=== PATIENT | female | born 1925 | race Caucasian/White ===

== ENCOUNTER 2016-10-17 08:58 | Inpatient (IN) | payer OTHER, MEDICARE ==
[~2016-10-17] VITALS: Ht 157.5 cm; Wt 47.0 kg
[2016-10-17] VITALS (8 sets, daily range): BP systolic 114–154; BP diastolic 54–76; PULSE 69–87; RESP 15–19; TEMP 96.3–98.6; O2SAT 96–100
[~2016-10-17 08:58] MED LIST: AUGM875T PO; CALC600T34 PO; CENTCHW3 PO; LEVO88TA21 PO; MAGN250T3 PO; MELO15TA2 PO; MEMA10 PO; METH2.5 PO; PRESCAP6 PO; PROP60TA2 PO; TIMO0.5S6 OD; TRAV0.00 EACH EYE; VITA400C70 PO; VITA500T10 PO
[2016-10-17] MEDS ORDERED: PROP60TA PO (09:26)
[2016-10-17] MEDS ORDERED: LEVO75TA3 PO (09:26)
[2016-10-17] MEDS ORDERED: MELO7.5T4 PO (09:26)
[2016-10-17] MEDS ORDERED: METH2.5T PO (09:26)
[2016-10-17] MEDS ORDERED: SODIUM CHLORIDE 0.9% FLUSH 5 ML FLUSH IV FLUSH PRN (10:00)
[2016-10-17] MEDS ORDERED: MORPHINE SULFATE 4 MG/ML INJ IV PUSH ONE (10:00)
[2016-10-17 10:46] LABS: AUTOMATED NEUTROPHIL # 11.7 TH/MM3 (1.8-7.7); BASOPHIL # 0.1 TH/MM3 (0-0.2); BASOPHIL % 0.5 % (0.0-2.0); EOSINOPHIL # 0.1 TH/MM3 (0-0.4); EOSINOPHIL % 0.4 % (0.0-4.0); HEMATOCRIT 37.9 % (35.0-46.0); HEMO FLAGS DIFF FINAL; LYMPH % 5.1 % (9.0-44.0); LYMPHOCYTE # 0.7 TH/MM3 (1.0-4.8); MEAN CELL VOLUME 98.3 FL (80.0-100.0); MEAN CORPUSCULAR HEMOGLOBIN 31.5 PG (27.0-34.0); MEAN CORPUSCULAR HGB CONC 32.1 % (32.0-36.0); MONO % 4.8 % (0.0-8.0); NEUT % 89.2 % (16.0-70.0); PLATELET COUNT 232 TH/MM3 (150-450); RED BLOOD COUNT 3.86 MIL/MM3 (4.00-5.30); RED CELL DISTRIBUTION WIDTH 15.7 % (11.6-17.2); WHITE BLOOD COUNT 13.1 TH/MM3 (4.0-11.0)
[2016-10-17 10:50] LABS: BLOOD, URINE SMALL (NEG); GLUCOSE,URINE NEG (NEG); KETONE, URINE TRACE mg/dL (NEG); NITRITE,URINE NEG (NEG); PH, URINE 6.5 (5.0-8.5); SQUAMOUS EPITHELIAL CELL URINE <1 /hpf (0-5); URINE COLOR YELLOW (YELLW/STRAW)
[2016-10-17 10:51] LABS: INTERNATIONAL NORMALIZED RATIO 1.1 RATIO; PROTHROMBIN TIME - PATIENT 12.3 SEC (9.8-11.6)
--- NOTE | 2016-10-17 10:56 | RADRPT ---
EXAM DATE/TIME: 10/17/2016 10:38 [facility] COMPARISON: CT BRAIN W/O CONTRAST, April 08, 2013, 20:26. INDICATIONS : Patient fell, altered mental status RADIATION DOSE: 33.08 CTDIvol (mGy) MEDICAL HISTORY : Hypertension. Rheumatoid arthritis. Dementia. SURGICAL HISTORY : None. ENCOUNTER: Initial ACUITY: 1 day PAIN SCALE: 0/10 LOCATION: cranial TECHNIQUE: Multiple contiguous axial images were obtained of the head. Using automated exposure control and adjustment of the mA and/or kV according to patient size, radiation dose was kept as low as reasonably achievable to obtain optimal diagnostic quality images. DICOM format image data is av ailable electronically for review and comparison. FINDINGS: CEREBRUM: Moderate diffuse renal atrophy. Moderate periventricular white matter hypodensities con sistent with ischemic white matter margination. The ventricles are normal for age. No evidence of mi dline shift, mass lesion, hemorrhage or acute infarction. No extra-axial fluid collections are seen. POSTERIOR FOSSA: The cerebellum and brainstem are intact. The 4th ventricle is midline. The cer ebellopontine angle is unremarkable. EXTRACRANIAL: The visualized portion of the orbits is intact. SKULL: The calvaria is intact. No evidence of skull fracture. Redemonstration of posterior fusio n between the occiput and the upper cervical spine. CONCLUSION: 1. Senescent changes. 2. Moderate periventricular small vessel ischemic changes. 3. No acute intracranial abnormality. Kai Owens MD on October 17, 2016 at 10:50 Board Certified Radiologist. This report was verified electronically.
[2016-10-17 11:04] LABS: COMMENT (UR) CATH-CULT NOT IND; CULTURE IF INDICATED CATH CULTURE NOT IND
[2016-10-17 11:06] LABS: CHLORIDE 103 MEQ/L (98-107); POTASSIUM 3.9 MEQ/L (3.5-5.1); SODIUM (NA) 136 MEQ/L (136-145)
--- NOTE | 2016-10-17 11:17 | RADRPT ---
EXAM DATE/TIME: 10/17/2016 11:03 [facility] COMPARISON: No previous studies available for comparison. INDICATIONS : Left hip pain, fall. MEDICAL HISTORY : Pelvic fracture SURGICAL HISTORY : None. ENCOUNTER: Initial ACUITY: 1 day PAIN SCORE: 9/10 LOCATION: Left hip FINDINGS: There is a subtle subcapital femoral neck fracture which is partial towards the lateral aspect. CONCLUSION: Subtle subcapital nondisplaced partial femoral neck fracture. Justo Evans MD on October 17, 2016 at 11:14 Board Certified Radiologist. This report was verified electronically.
--- NOTE | 2016-10-17 11:27 | RADRPT ---
EXAM DATE/TIME: 10/17/2016 10:58 [facility] COMPARISON: No previous studies available for comparison. INDICATIONS : Syncope. MEDICAL HISTORY : None. SURGICAL HISTORY : None. ENCOUNTER: Initial ACUITY: 1 day PAIN SCORE: 0/10 LOCATION: Bilateral chest FINDINGS: Lungs are hyperinflated with diffuse interstitial prominence, likely chronic in etiology. No signific ant focal pleural or parenchymal opacities. Cardiomediastinal contours are within normal limits. Bony thorax is grossly intact. CONCLUSION: 1. No acute cardiopulmonary disease. Kai Owens MD on October 17, 2016 at 11:20 Board Certified Radiologist. This report was verified electronically.
[2016-10-17 11:37] LABS: ALKALINE PHOSPHATASE 73 U/L (45-117); CREATINE KINASE 127 U/L (26-192)
[2016-10-17 11:42] LABS: ALT (GPT) 28 U/L (10-53); AST (GOT) 25 U/L (15-37); BLOOD UREA NITROGEN 22 MG/DL (7-18); GLOMERULAR FILTRATION RATE 62 ML/MIN (>89)
[2016-10-17 11:44] LABS: ALCOHOL LESS THAN 3 MG/DL (0-5); ANION GAP 7 MEQ/L (5-15); BICARBONATE 26.5 MEQ/L (21.0-32.0)
--- NOTE | 2016-10-17 12:03 | PD ---
HPI Chief Complaint: Fall Time Seen by Provider: 09:11 Travel History International Travel<30 days: No Contact w/Intl Traveler<30days: No Traveled to known affect area: No History of Present Illness HPI 89-year-old female was found in her assisted living facility in between the bathroom door and her bed on the floor unable to get up. The down time is unknown. Patient was awake but somewhat confused and did not remember falling. She remembers hitting her head but knows that she did not pass out. She was complaining of left hip pain and was unable to move her left leg. When I went to examine the patient and she was very confused and delirious. Vital signs were within acceptable limits. Patient was not a reliable historian at this point. She is not on any blood thinners. FORMERLY [facility] Past Medical History Narrative Medical list of her past medical, surgical, social and family history reviewed from the nursing note. Arthritis: Yes (RA) Autoimmune Disease: Yes (RA) Blood Disorders: No Heart Rhythm Problems: No Cancer: No Cardiovascular Problems: Yes High Cholesterol: No Chemotherapy: No Chest Pain: No Congestive Heart Failure: No Cerebrovascular Accident: No Glaucoma: Yes Genitourinary: No Headaches: No Hypertension: Yes Immune Disorder: No Musculoskeletal: Yes Neurologic: Yes Psychiatric: No Reproductive: No Respiratory: No Migraines: No Myocardial Infarction: No Radiation Therapy: No Seizures: No Sickle Cell Disease: No Tetanus Vaccination: < 5 Years Influenza Vaccination: Yes Past Surgical History AICD: No Arteriovenous Shunt: No Body Medical Devices: NECK HARDWARE Insulin Pump: No Joint Replacement: No Pacemaker: No Other Surgery: Yes (ANTERIOR CERV. FUSION. POST CERV FUSION. CR L WRIST. R CATARACT REMOVAL) Social History Alcohol Use: Yes (WINE DAILY) Tobacco Use: No Substance Use: No Allergies-Medications (Allergen,Severity, Reaction): Coded Allergies: Sulfa (Sulfonamide Antibiotics) (Verified Allergy, Severe, Rash, 10/17/16) Comments List of her allergies reviewed from the nursing note. Reported Meds & Prescriptions Reported Meds & Active Scripts Active Reported Levothyroxine (Levothyroxine Sodium) 75 Mcg Tab 75 Mcg PO DAILY Meloxicam 7.5 Mg Tab 7.5 Mg PO DAILY Propranolol (Propranolol HCl) 60 Mg Tab 60 Mg PO Q12HR Methotrexate 2.5 Mg Tab 2.5 Mg PO Q7D Narrative Medication List of her home medications reviewed from the nursing note. Review of Systems Except as stated in HPI: all other systems reviewed are Neg Physical Exam Narrative GENERAL: Awake, alert, elderly, frail, confused, moderate distress SKIN: Focused skin assessment warm/dry. HEAD: Atraumatic. Normocephalic. EYES: Pupils equal and round. No scleral icterus. No injection or drainage. ENT: No nasal bleeding or discharge. Mucous membranes pink and moist. NECK: Trachea midline. No JVD. CARDIOVASCULAR: Regular rate and rhythm. No murmur appreciated. RESPIRATORY: No accessory muscle use. Clear to auscultation. Breath sounds equal bilaterally. GASTROINTESTINAL: Abdomen soft, non-tender, nondistended. Hepatic and splenic margins not palpable. MUSCULOSKELETAL: Left leg is flexed. Patient refuses to range it because of the pain. No clubbing. No cyanosis. No edema. NEUROLOGICAL: Awake and alert. No obvious cranial nerve deficits. Motor grossly within normal limits. Normal speech. PSYCHIATRIC: Confused; poor insight and judgment Data Data Last Documented VS Vital Signs Date Time Temp Pulse Resp B/P (MAP) Pulse Ox O2 Delivery O2 Flow Rate FiO2 10/17/16 10:22 16 10/17/16 09:52 98 Nasal Cannula 2.00 10/17/16 09:13 68 10/17/16 09:13 98.6 144/66 (92) Orders Orders Electrocardiogram (10/17/16 09:50) Complete Blood Count With Diff (10/17/16 09:50) Comprehensive Metabolic Panel (10/17/16 09:50) Creatine Kinase (Cpk) (10/17/16 09:50) Prothrombin Time / Inr (Pt) (10/17/16 09:50) Troponin I (10/17/16 09:50) Thyroid Stimulating Hormone (10/17/16 09:50) Urinalysis - C+S If Indicated (10/17/16 09:50) Lactic Acid Sepsis Protocol (10/17/16 09:50) Blood Culture (10/17/16 09:50) Chest, Single Ap (10/17/16 09:50) Ct Brain W/O Iv Contrast(Rout) (10/17/16 09:50) Blood Glucose (10/17/16 09:50) Ecg Monitoring (10/17/16 09:50) Iv Access Insert/Monitor (10/17/16 09:50) Oximetry (10/17/16 09:50) Sodium Chloride 0.9% Flush (Ns Flush) (10/17/16 10:00) Drug Screen, Random Urine (10/17/16 09:50) Alcohol (Ethanol) (10/17/16 09:50) Morphine Inj (Morphine Inj) (10/17/16 10:00) Hip, Uni(Ap&Lat) W Ap Pelvis (10/17/16 ) Creatine Kinase (Cpk) (10/17/16 10:30) Lorazepam Inj (Ativan Inj) (10/17/16 12:19) Levothyroxine (Synthroid) (10/18/16 06:00) Admit Order (Ed Use Only) (10/17/16 12:28) Propranolol (Inderal) (10/17/16 21:00) Methotrexate (Rheumatrex) (10/21/16 09:00) Labs Laboratory Tests Test 10/17/16 10:30 White Blood Count 13.1 TH/MM3 Red Blood Count 3.86 MIL/MM3 Hemoglobin 12.2 GM/DL Hematocrit 37.9 % Mean Corpuscular Volume 98.3 FL Mean Corpuscular Hemoglobin 31.5 PG Mean Corpuscular Hemoglobin Concent 32.1 % Red Cell Distribution Width 15.7 % Platelet Count 232 TH/MM3 Mean Platelet Volume 10.3 FL Neutrophils (%) (Auto) 89.2 % Lymphocytes (%) (Auto) 5.1 % Monocytes (%) (Auto) 4.8 % Eosinophils (%) (Auto) 0.4 % Basophils (%) (Auto) 0.5 % Neutrophils # (Auto) 11.7 TH/MM3 Lymphocytes # (Auto) 0.7 TH/MM3 Monocytes # (Auto) 0.6 TH/MM3 Eosinophils # (Auto) 0.1 TH/MM3 Basophils # (Auto) 0.1 TH/MM3 CBC Comment DIFF FINAL Differential Comment Prothrombin Time 12.3 SEC Prothromb Time International Ratio 1.1 RATIO Urine Color YELLOW Urine Turbidity CLEAR Urine pH 6.5 Urine Specific [place] 1.018 Urine Protein TRACE mg/dL Urine Glucose (UA) NEG mg/dL Urine Ketones TRACE mg/dL Urine Occult Blood SMALL Urine Nitrite NEG Urine Bilirubin NEG Urine Urobilinogen LESS THAN 2.0 MG/DL Urine Leukocyte Esterase NEG Urine RBC 42 /hpf Urine WBC 3 /hpf Urine Squamous Epithelial Cells <1 /hpf Microscopic Urinalysis Comment CATH-CULT NOT IND Blood Urea Nitrogen 22 MG/DL Creatinine 0.86 MG/DL Random Glucose 111 MG/DL Total Protein 6.6 GM/DL Albumin 3.2 GM/DL Calcium Level 8.9 MG/DL Alkaline Phosphatase 73 U/L Aspartate Amino Transf (AST/SGOT) 25 U/L Alanine Aminotransferase (ALT/SGPT) 28 U/L Total Bilirubin 1.0 MG/DL Sodium Level 136 MEQ/L Potassium Level 3.9 MEQ/L Chloride Level 103 MEQ/L Carbon Dioxide Level 26.5 MEQ/L Anion Gap 7 MEQ/L Estimat Glomerular Filtration Rate 62 ML/MIN Lactic Acid Level 1.3 mmol/L Total Creatine Kinase 127 U/L Troponin I LESS THAN 0.02 NG/ML Thyroid Stimulating Hormone 3rd Gen 3.540 uIU/ML Urine Opiates Screen NEG Urine Barbiturates Screen NEG Urine Amphetamines Screen NEG Urine Benzodiazepines Screen NEG Urine Cocaine Screen NEG Urine Cannabinoids Screen NEG Ethyl Alcohol Level LESS THAN 3 MG/DL MDM Medical Decision Making Medical Screen Exam Complete: Yes Emergency Medical Condition: Yes Medical Record Reviewed: Yes Interpretation(s) Twelve-lead EKG was reviewed by me. Normal sinus rhythm, left axis deviation, nonspecific ST-T wave changes. Heart rate of 74 bpm. Differential Diagnosis Hip fracture, intracranial bleed, electrolyte abnormality, rhabdomyolysis Narrative Course 12:02 PM awaiting for the blood test results and the x-ray of the hip and CAT scan report. Because of a computer downtime the reports are unable to be seen by ER. Radiology is going to fax these reports. 12:[address] scan of the head is negative for bleed. X-ray shows a subcapital femoral head fracture. I put a call out for orthopedist as well as the admitting physician for admission. Patient will be given some Ativan because she is getting agitated and confused at this point. Procedures EKG Prior to Arrival: No Physician Communication Physician Communication DAMIEN Wolff Diagnosis Primary Impression: Fall Qualified Codes: W19.XXXA - Unspecified fall, initial encounter Additional Impressions: Hip fracture Qualified Codes: S72.002A - Fracture of unspecified part of neck of left femur , initial encounter for closed fracture Confusion Admitting Information Admitting Physician Requests: Admit Scripts Rivaroxaban (Xarelto) 10 Mg Tab 10 MG PO DAILY for Blood Clot Prevention, #14 TAB 0 Refills Prov: Aquilnio Wolff MD 10/18/16 Hydrocodone-Acetaminophen ([place]) 5-325 mg Tab 1 TAB PO Q4H Y for PAIN, #50 TAB 0 Refills Prov: Aquilino Wolff MD 10/18/16 Geo Paz MD Oct 17, 2016 12:03
[2016-10-17] MEDS ORDERED: LORazepam 2 MG/ML VIAL ONE (12:19)
--- NOTE | 2016-10-17 12:41 | HHI.HP ---
[facility] Primary Care Physician Robe Jacob MD Admission Diagnosis hip fracture, fall, confusion Diagnoses: Chief Complaint: Fall Travel History International Travel<30 Days: No Contact w/Intl Traveler <30 Da: No Traveled to Known Affected Are: No History of Present Illness Written by Ed العراقي, acting as scribe for Dr. Stallworth on 10/17/16 at 12:31. 89-year-old female with past medical history of dementia who was sent from half-way after she was found down. The patient has dementia and is normally oriented to self. She was trying to get out of bed in the ED, received Ativan and is currently sedated and unable to provide any history. History obtained from the EMR and ED communication. The [facility]. She was found down for unknown amount of time. She was unable to get off the floor and complained of left hip pain so she was sent to the ED. Patient was found to have left femoral neck fracture. ED contacted orthopedics. Review of Systems ROS Limitations: Altered Mental Status, Poor Historian Past Family Social History Past Medical History Dementia Arthritis/chronic neck and back pain Hypothyroidism Hypertension Past Surgical History C-spine surgeries Cataract surgery Reported Medications Reported Meds & Active Scripts Active Reported Levothyroxine (Levothyroxine Sodium) 75 Mcg Tab 75 Mcg PO DAILY Meloxicam 7.5 Mg Tab 7.5 Mg PO DAILY Propranolol (Propranolol HCl) 60 Mg Tab 60 Mg PO Q12HR Methotrexate 2.5 Mg Tab 2.5 Mg PO Q7D Allergies: Coded Allergies: Sulfa (Sulfonamide Antibiotics) (Verified Allergy, Severe, Rash, 10/17/16) Active Ordered Medications Current Medications Medications (Trade) Dose Ordered Sig/Kamar Route Start Time Stop Time Status Last Admin (NS Flush) 2 ml UNSCH PRN IV FLUSH 10/17/16 10:00 10/17/16 10:18 (Synthroid) 75 mcg DAILY PO 10/18/16 09:00 UNV (Rheumatrex) 2.5 mg Q7D PO 10/17/16 12:30 UNV Non-Formulary Medication 60 mg Q12HR PO 10/17/16 21:00 UNV Family History Unable to obtain, patient currently sedated Social History [facility] resident Former tobacco use Physical Exam Vital Signs Vital Signs Date Time Temp Pulse Resp B/P (MAP) Pulse Ox O2 Delivery O2 Flow Rate FiO2 10/17/16 10:22 16 10/17/16 09:52 17 98 Nasal Cannula 2.00 10/17/16 09:13 68 17 99 Nasal Cannula 2.00 10/17/16 09:13 98.6 69 17 144/66 (92) 99 Physical Exam GENERAL: Well-developed fair-nourished thin, frail elderly patient. In no acute distress. SKIN: Warm and dry. No lesions noted. HEENT: Normocephalic. Pupils equal and round. Mucous membranes pink and moist. CARDIOVASCULAR: Regular rate and rhythm. No murmur appreciated. RESPIRATORY: No accessory muscle use. Clear to auscultation. Breath sounds equal bilaterally. GASTROINTESTINAL: Abdomen soft, non-tender, nondistended. Bowel sounds x4. MUSCULOSKELETAL: Left leg is externally rotated, unclear if shortened. No hip pain to palpation. No clubbing or cyanosis. No edema. NEUROLOGICAL: Sedated. Slightly arousable to noxious stimuli. Laboratory Laboratory Tests Test 10/17/16 10:30 White Blood Count 13.1 Red Blood Count 3.86 Hemoglobin 12.2 Hematocrit 37.9 Mean Corpuscular Volume 98.3 Mean Corpuscular Hemoglobin 31.5 Mean Corpuscular Hemoglobin Concent 32.1 Red Cell Distribution Width 15.7 Platelet Count 232 Mean Platelet Volume 10.3 Neutrophils (%) (Auto) 89.2 Lymphocytes (%) (Auto) 5.1 Monocytes (%) (Auto) 4.8 Eosinophils (%) (Auto) 0.4 Basophils (%) (Auto) 0.5 Neutrophils # (Auto) 11.7 Lymphocytes # (Auto) 0.7 Monocytes # (Auto) 0.6 Eosinophils # (Auto) 0.1 Basophils # (Auto) 0.1 CBC Comment DIFF FINAL Differential Comment Prothrombin Time 12.3 Prothromb Time International Ratio 1.1 Urine Color YELLOW Urine Turbidity CLEAR Urine pH 6.5 Urine Specific [place] 1.018 Urine Protein TRACE Urine Glucose (UA) NEG Urine Ketones TRACE Urine Occult Blood SMALL Urine Nitrite NEG Urine Bilirubin NEG Urine Urobilinogen LESS THAN 2.0 Urine Leukocyte Esterase NEG Urine RBC 42 Urine WBC 3 Urine Squamous Epithelial Cells <1 Microscopic Urinalysis Comment CATH-CULT NOT IND Blood Urea Nitrogen 22 Creatinine 0.86 Random Glucose 111 Total Protein 6.6 Albumin 3.2 Calcium Level 8.9 Alkaline Phosphatase 73 Aspartate Amino Transf (AST/SGOT) 25 Alanine Aminotransferase (ALT/SGPT) 28 Total Bilirubin 1.0 Sodium Level 136 Potassium Level 3.9 Chloride Level 103 Carbon Dioxide Level 26.5 Anion Gap 7 Estimat Glomerular Filtration Rate 62 Lactic Acid Level 1.3 Total Creatine Kinase 127 Troponin I LESS THAN 0.02 Thyroid Stimulating Hormone 3rd Gen 3.540 Ethyl Alcohol Level LESS THAN 3 Date/Time Source Procedure Growth Status 10/17/16 10:30 Blood Peripheral Aerobic Blood Culture Pending Received 10/17/16 10:30 Blood Peripheral Anaerobic Blood Culture Pending Received Result Diagram: 10/17/16 1030 10/17/16 1030 Imaging Last Impressions Head CT 10/17/16 0950 Signed Impressions: Service Date/Time: September 10:38 - CONCLUSION: 1. Senescent changes. 2. Moderate periventricular small vessel ischemic changes. 3. No acute intracranial abnormality. Kai Owens MD Chest X-Ray 10/17/16 0950 Signed Impressions: Service Date/Time: September 10:58 - CONCLUSION: 1. No acute cardiopulmonary disease. Kai Owens MD Hip and Pelvis X-Ray 10/17/16 0000 Signed Impressions: Service Date/Time: September 11:03 - CONCLUSION: Subtle subcapital nondisplaced partial femoral neck fracture. Justo Evans MD Caprini VTE Risk Assessment Caprini VTE Risk Assessment: Mod/High Risk (score >= 2) Caprini Risk Assessment Model Point Value = 1 Point Value = 2 Point Value = 3 Point Value = 5 Age 41-60 Minor surgery BMI > 25 kg/m2 Swollen legs Varicose veins or History of unexplained or recurrent spontaneous Oral contraceptives or hormone replacement Sepsis (< 1 month) Serious lung disease, including pneumonia (< 1 month) Abnormal pulmonary function Acute myocardial infarction Congestive heart failure (< 1 month) History of inflammatory bowel disease Medical patient at bed rest Age 61-74 Arthroscopic surgery Major open surgery (> 45 min) Laparoscopic surgery (> 45 min) Malignancy Confined to bed (> 72 hours) Immobilizing plaster cast Central venous access Age >= 75 History of VTE Family history of VTE Factor V Leiden Prothrombin [id number] Lupus anticoagulant Anticardiolipin antibodies Elevated serum homocysteine Heparin-induced thrombocytopenia Other congenital or acquired thrombophilia Stroke (< 1 month) Elective arthroplasty Hip, pelvis, or leg fracture Acute spinal cord injury (< 1 month) Prophylaxis Regimen Total Risk Factor Score Risk Level Prophylaxis Regimen 0-1 Low Early ambulation 2 Moderate Order ONE of the following: *Sequential Compression Device (SCD) *Heparin 5000 units SQ BID 3-4 Higher Order ONE of the following medications: *Heparin 5000 units SQ TID *Enoxaparin/Lovenox 40 mg SQ daily (WT < 150 kg, CrCl > 30 mL/min) *Enoxaparin/Lovenox 30 mg SQ daily (WT < 150 kg, CrCl > 10-29 mL/min) *Enoxaparin/Lovenox 30 mg SQ BID (WT < 150 kg, CrCl > 30 mL/min) AND/OR *Sequential Compression Device (SCD) 5 or more Highest Order ONE of the following medications: *Heparin 5000 units SQ TID (Preferred with Epidurals) *Enoxaparin/Lovenox 40 mg SQ daily (WT < 150 kg, CrCl > 30 mL/min) *Enoxaparin/Lovenox 30 mg SQ daily (WT < 150 kg, CrCl > 10-29 mL/min) *Enoxaparin/Lovenox 30 mg SQ BID (WT < 150 kg, CrCl > 30 mL/min) AND *Sequential Compression Device (SCD) Assessment and Plan Assessment and Plan 89-year-old female with past medical history of dementia who was sent from half-way after she was found down and found to have left femoral neck fracture Left femoral neck fracture: Hip x-ray showed subtle subcapital nondisplaced partial femoral neck fracture. -Orthopedics was contacted from the ED; diet, activity, rehabilitation recommendations per orthopedics -Pain control with [place] and IV morphine Dementia with possible confusion: Head CT with chronic changes and no acute intracranial abnormality. Chest x-ray and UA clear. Afebrile with no leukocytosis. -Ativan as needed for agitation Other chronic medical conditions include HTN, hypothyroidism, stable at this time and will continue home medications as indicated. DVT prophylaxis: Heparin This note was transcribed by dante [Malcom Ward]. I, Dr. Key Stallworth personally performed the history, physical exam, and medical decision making; and confirmed the accuracy of the information in the transcribed note. Authenticated by Dr. Key Stallworth on 10/17/16 at 12:43. Discussed Condition With Patient, ED staff Ed العراقي Oct 17, 2016 12:41 Key Stallworth MD Oct 17, 2016 12:43
[2016-10-17] MEDS ORDERED: LACTATED RINGER'S 1000 ML INJ 1,000 ML IV SCH (12:51)
[2016-10-17] MEDS ORDERED: NALOXONE HCL 0.4 MG/ML AMP IV PRN (13:00)
[2016-10-17] MEDS ORDERED: MORPHINE SULFATE 8 MG/ML INJ IV PUSH PRN (13:00)
[2016-10-17] MEDS ORDERED: SODIUM CHLORIDE 0.9% FLUSH 10 ML FLUSH IV FLUSH PRN (13:00)
[2016-10-17] MEDS ORDERED: ONDANSETRON HCL 4 MG/2 ML VIAL IVP PRN (13:00)
[2016-10-17] MEDS ORDERED: LORazepam 2 MG/ML VIAL IM PRN (13:00)
[2016-10-17] MEDS ORDERED: ACETAMINOPHEN/HYDROcodone 325 MG/5 MG TAB PO PRN (13:00)
[2016-10-17] MEDS ORDERED: MAGNESIUM HYDROXIDE SUSP 30 ML CUP PO PRN (13:00)
[2016-10-17] MEDS ORDERED: PILL SPLITTER OTHER PRN (13:30)
[2016-10-17] MEDS ORDERED: HEPARIN SODIUM - SQ 10,000 UNITS/ML VIAL SQ SCH (21:00)
[2016-10-17] MEDS: SODIUM CHLORIDE 0.9% FLUSH 10 ML FLUSH IV FLUSH SCH (21:00)
[2016-10-17] MEDS ORDERED: CHLORHEXIDINE GLUCONATE 2 % 1 PACK (2 CLOTHS) TOPICAL PRN (22:30)
[2016-10-17] MEDS ORDERED: SODIUM CHLORID 0.9% 500 ML IV PRN (22:30)
[2016-10-17] MEDS ORDERED: INSULIN HUMAN REGULAR 1,000 UNITS/10 ML VIAL SQ PRN (22:30)
[2016-10-17] MEDS ORDERED: POVIDONE IODINE 5% (ANTISEPSIS KIT) 4 APPLICATIONS EACH NARE PRN (22:30)
[2016-10-17] MEDS ORDERED: LACTATED RINGER'S 1000 ML IV PRN (22:30)
[2016-10-17] MEDS: PROPRANOLOL HCL 40 MG TAB PO SCH (22:42)
[2016-10-18 00:20] VITALS: BP 114/75; PULSE 70; RESP 19; TEMP 96.8; O2SAT 99
[2016-10-18 04:20] VITALS: BP 114/75; PULSE 75; RESP 18; TEMP 98.6; O2SAT 95
[2016-10-18] MEDS: LEVOTHYROXINE SODIUM 75 MCG TAB PO SCH (05:51)
--- NOTE | 2016-10-18 06:58 | PD.ORT.PN ---
Subjective Subjective Remarks s/p left hip fx demented. unable to consent. difficulty reaching family Objective Vitals Vital Signs Date Time Temp Pulse Resp B/P (MAP) Pulse Ox O2 Delivery O2 Flow Rate FiO2 10/18/16 00:20 96.8 70 19 114/75 (88) 99 10/17/16 20:20 96.8 70 19 114/75 (88) 99 10/17/16 19:48 Nasal Cannula 2.00 10/17/16 18:49 96.3 87 15 139/54 (82) 96 10/17/16 17:55 98.0 88 16 154/76 (102) 98 Nasal Cannula 2.00 10/17/16 14:08 75 17 147/69 (95) 100 Nasal Cannula 2.00 10/17/16 13:16 98.0 84 16 142/69 (93) 98 Nasal Cannula 2.00 10/17/16 10:22 16 10/17/16 09:52 17 98 Nasal Cannula 2.00 10/17/16 09:13 68 17 99 Nasal Cannula 2.00 10/17/16 09:13 98.6 69 17 144/66 (92) 99 I/O 10/17/16 10/17/16 10/17/16 10/18/16 10/18/16 10/18/16 07:00 15:00 23:00 07:00 15:00 23:00 Intake Total 320 ml Output Total 800 ml Balance -480 ml Intake Oral 320 ml Output Urine Total 800 ml # Voids 1 # Bowel Movements 0 Result Diagram: 10/17/16 1030 10/17/16 1030 Other Results Laboratory Tests Test 10/17/16 10:30 Prothromb Time International Ratio 1.1 RATIO Prothrombin Time 12.3 SEC (9.8-11.6) Imaging Last [address] 10/17/16 0950 Signed Impressions: Service Date/Time: September 10:38 - CONCLUSION: 1. Senescent changes. 2. Moderate periventricular small vessel ischemic changes. 3. No acute intracranial abnormality. Kai Owens MD Chest X-Ray 10/17/16 0950 Signed Impressions: Service Date/Time: September 10:58 - CONCLUSION: 1. No acute cardiopulmonary disease. Kai Owens MD Objective Remarks LLE: pain with motion. nvi Assessment & Plan Assessment and Plan 1) Left femoral Neck Fx -consents -plan for surgery today if can get consent from family Fadi Dickey Oct 18, 2016 06:58
[2016-10-18 07:48] VITALS: BP 142/78; PULSE 71; RESP 18; TEMP 98.7; O2SAT 93
[2016-10-18] MEDS ORDERED: GENTAMICIN SULFATE 80 MG/2 ML VIAL ONE (07:56)
[2016-10-18 07:58] LABS: AUTOMATED NEUTROPHIL # 10.2 TH/MM3 (1.8-7.7); BASOPHIL # 0.1 TH/MM3 (0-0.2); BASOPHIL % 0.6 % (0.0-2.0); EOSINOPHIL # 0.4 TH/MM3 (0-0.4); HEMATOCRIT 37.7 % (35.0-46.0); HEMO FLAGS DIFF FINAL; LYMPH % 5.7 % (9.0-44.0); LYMPHOCYTE # 0.7 TH/MM3 (1.0-4.8); MEAN CELL VOLUME 98.4 FL (80.0-100.0); MEAN CORPUSCULAR HEMOGLOBIN 31.2 PG (27.0-34.0); MEAN CORPUSCULAR HGB CONC 31.8 % (32.0-36.0); MONO % 6.9 % (0.0-8.0); NEUT % 83.8 % (16.0-70.0); PLATELET COUNT 217 TH/MM3 (150-450); RED BLOOD COUNT 3.84 MIL/MM3 (4.00-5.30); RED CELL DISTRIBUTION WIDTH 15.5 % (11.6-17.2); WHITE BLOOD COUNT 12.2 TH/MM3 (4.0-11.0)
[2016-10-18] MEDS: PROPRANOLOL HCL 40 MG TAB PO SCH ×2 (08:10→20:32)
[2016-10-18 08:19] LABS: BICARBONATE 29.5 MEQ/L (21.0-32.0); POTASSIUM 4.2 MEQ/L (3.5-5.1)
[2016-10-18] MEDS ORDERED: VANCOMYCIN HCL 1000 MG VIAL ONE (10:42)
[2016-10-18] MEDS ORDERED: ceFAZolin 2 GM PREMIX 50 ML ONE (10:42)
[2016-10-18] MEDS ORDERED: SODIUM CHLOR 0.9% 250 ML INJ 250 ML ONE (10:45)
--- NOTE | 2016-10-18 11:47 | EKG ---
Date Performed: 10/17/2016 Time Performed: 11:18:21 PTAGE: 89 years EKG: Sinus rhythm MARKED LEFT AXIS DEVIATION ABNORMAL ECG Compared to prior tracing no significant change PREVIOUS TRACING : 04/08/2013 21.47 DOCTOR: Jimmy Agarwal Interpretating Date/Time 10/18/2016 11:43:07
[2016-10-18] MEDS ORDERED: BUPIVACAINE/EPINEPHRINE 0.25% 50 ML VIAL ONE (11:51)
[2016-10-18] MEDS ORDERED: ePHEDrine/NS 25 MG/5 ML SYR IV ONE (12:00)
[2016-10-18] MEDS ORDERED: ONDANSETRON HCL 4 MG/2 ML VIAL IV PUSH ONE (12:00)
[2016-10-18] MEDS ORDERED: PROPOFOL 200 MG/20 ML AMP IV ONE (12:00)
[2016-10-18] MEDS ORDERED: PHENYLEPH/NS 1000 MCG/10 ML SYR IV ONE (12:00)
[2016-10-18] MEDS ORDERED: SODIUM CHLOR 0.9% 250 ML INJ 250 ML IV ONE (12:00)
[2016-10-18] MEDS ORDERED: XARE10TA PO (12:02)
[2016-10-18] MEDS ORDERED: NORC5TAB PO (12:02)
--- NOTE | 2016-10-18 12:09 | PD.ORT.PN ---
Subjective Subjective Remarks POD #0 status post left hip percutaneous pinning for femoral neck fracture Objective Vitals Vital Signs Date Time Temp Pulse Resp B/P (MAP) Pulse Ox O2 Delivery O2 Flow Rate FiO2 10/18/16 07:48 98.7 71 18 142/78 (99) 93 10/18/16 04:20 98.6 75 18 114/75 (88) 95 10/18/16 00:20 96.8 70 19 114/75 (88) 99 10/17/16 20:20 96.8 70 19 114/75 (88) 99 10/17/16 19:48 Nasal Cannula 2.00 10/17/16 18:49 96.3 87 15 139/54 (82) 96 10/17/16 17:55 98.0 88 16 154/76 (102) 98 Nasal Cannula 2.00 10/17/16 14:08 75 17 147/69 (95) 100 Nasal Cannula 2.00 10/17/16 13:16 98.0 84 16 142/69 (93) 98 Nasal Cannula 2.00 I/O 10/17/16 10/17/16 10/17/16 10/18/16 10/18/16 10/18/16 07:00 15:00 23:00 07:00 15:00 23:00 Intake Total 320 ml 0 ml Output Total 800 ml 150 ml Balance -480 ml -150 ml Intake Oral 320 ml 0 ml Output Urine Total 800 ml 150 ml # Voids 1 # Bowel Movements 0 0 Result Diagram: 10/18/16 0711 10/18/16 0711 Imaging Last [address] 10/17/16 0950 Signed Impressions: Service Date/Time: September 10:38 - CONCLUSION: 1. Senescent changes. 2. Moderate periventricular small vessel ischemic changes. 3. No acute intracranial abnormality. Kai Owens MD Chest X-Ray 10/17/16 0950 Signed Impressions: Service Date/Time: September 10:58 - CONCLUSION: 1. No acute cardiopulmonary disease. Kai Owens MD Objective Remarks Patient has dementia with significant confusion secondary to dementia. LLE: pain with motion. nvi. CDDI Assessment & Plan Assessment and Plan 1) Left femoral Neck Fx--postop day #0 status post pinning Lovenox/Xarelto Physical therapy--toe-touch weightbearing Case management for SNF planning Discharge to rehabilitation on Friday or Friday Aquilino Hankins MD Oct 18, 2016 12:09
--- NOTE | 2016-10-18 12:11 | PD.OP ---
cc: Aquilino Wolff MD Operative Report Date of Surgery: Oct 18, 2016 Preoperative Diagnosis: Left impacted femoral neck fracture Postoperative Diagnosis: Procedure: Left hip pinning Anesthesia: Gen. Surgeon: Aquilino Wolff Detention Sergeant(s): Fadi Dickey PA-C The surgical procedure was assisted by my physician automotive service assistant. My P.A. presence was necessary throughout this case for the manipulation and positioning of the surgical extremity. My P.A. was assisting me throughout the duration of this procedure. The skill set of a physician automotive service assistant was medically necessary to complete this procedure. During the surgical case the surgical services director was working at the back table and the physician automotive service assistant was directly assisting me. Operation and Findings: Plan of activity: TTWB Patient was seen and evaluated preoperatively. The patient has significant hip pain from impacted femoral neck fracture. The risk and benefits of surgery were discussed in depth with the patient to include bleeding infection nonunion malunion, avascular necrosis and need for hip replacement painful hardware as well as medical competitions including but not stroke heart attack and . Informed consent was obtained. Operative site was marked. Patient was brought to the operating room and placed on fracture table. IV sedation was administered by anesthesiologist. Timeout procedure was performed. Hip and leg were prepped with alcohol followed by Hibiclens and draped in the usual sterile fashion. IV antibiotics were given prior to incision. Procedure began with evaluation of fracture under fluoroscopy. Leg was gently manipulated to improve alignment. Excellent reduction was achieved. Fluoroscopy was used to confirm reduction. A three cm incision was along the lateral aspect of the proximal femur . Subcutaneous tissue was dissected bluntly. Three guidepins were placed through the lateral cortex of the proximal femur. Guide pins are the ITS 7.5 cannulated were placed in an inverted triangle position. Guide pins were advanced across the fracture site into the femoral head. Fluoroscopy confirmed appropriate guidepin placement. The screw lengths were measured. A cannulated drill was placed over each of the guide pins. Appropriate length ITS 7.5 cannulated screws were placed over the guidepins. Good compression was applied across the fracture. Final fluoroscopy revealed well aligned fracture with well-placed hardware. Incision was closed with 3-0 Vicryl and [place]. Sterile dressings were applied. Patient was awakened and transferred to recovery room. Aquilino Wolff MD Oct 18, 2016 12:11
[2016-10-18] MEDS ORDERED: DO NOT ADM ANY ANTICOAGULANT DRUGS PRN (12:12)
[2016-10-18] MEDS ORDERED: MORPHINE SULFATE 4 MG/ML INJ IV PUSH PRN (12:15)
[2016-10-18] MEDS ORDERED: Post-op Orders (for Pharmacy) MISC XX ONE (12:15)
[2016-10-18] MEDS ORDERED: SODIUM CHLORIDE 0.9% FLUSH 5 ML FLUSH IVF PRN (12:15)
[2016-10-18] MEDS ORDERED: *ENALAPRILAT 1.25 MG/ML VIAL PERIprocedural Use ONLY ONE (12:44)
[2016-10-18 13:30] VITALS: BP 151/72; PULSE 65; RESP 18; TEMP 96; O2SAT 96
--- NOTE | 2016-10-18 13:31 | MB ---
cc: CURT RUSSO DATE OF CONSULTATION: 10/17/1975 REASON FOR CONSULTATION: Left femoral neck fracture. HISTORY Augusto is a 89-year-old female who has dementia. She lives in an Assisted living facility, she was found on the ground. She presented to the emergency room where she was found to have a left femoral neck fracture. She is unable to give any other history. She does complain of left hip pain. Pain is worse with movement. It is unclear she had dizziness, syncope or loss of consciousness. PAST MEDICAL HISTORY/ILLNESSES Dementia Chronic pain Hypothyroidism Hypertension SURGERIES Cataract surgery MEDICATIONS Levothyroxine Meloxicam. Propranolol. Methotrexate ALLERGIES SULFA FAMILY HISTORY: Unobtainable. SOCIAL HISTORY: The patient lives in an assisted living facility. Other social history is unobtainable. REVIEW OF SYSTEMS Unobtainable secondary to dementia. PHYSICAL EXAMINATION IN GENERAL: The patient is a 89-year female who is awake but confused. She does not appear to be in any acute distress. She is thin but appears well-nourished. VITAL SIGNS: Temperature 89.7, pulse 71, respirations 18, blood pressure 142/78 o2 sat 92% on room air. HEAD, EYES, EARS, NOSE, AND THROAT: Head: The patient is normocephalic. Pupils are equal. NECK: Soft, nontender. Trachea is midline. ABDOMEN: The abdomen is soft, nontender, nondistended. EXTREMITIES: Examination of bilateral upper extremities shows no obvious pain or deformity with shoulder, elbow or wrist motion. She has intact sensation in all fingers. She has good cap refill fingers. Radial pulses palpable. Sensation intact in all fingers. Examination of the left leg reveals pain with any hip motion. She has no change in the tibia or ankle. Skin is intact. Dorsalis pedis pulses palpable. Sensation is intact. Examination of right leg reveals no pain with hip, knee or ankle motion. Skin is intact. Dorsalis pedis pulses palpable. Sensation is intact. X-RAYS X-rays of pelvis and left hip were reviewed x-rays reveal a valgus impaction with left femoral neck fracture. IMPRESSION 1. Osteoporosis 2. Dementia 3. Left femoral neck fracture. PLAN The treatment options were discussed with the patient at this point I would recommend a left hip pinning. Risks of surgery include bleeding, infection, injury to blood vessels, nonunion, malunion, avascular necrosis, need for hip replacement as well as medical complications including blood clot, stroke, heart attack and . All questions were answered. I will attempt to contact family for consents. A mid-level provider in my office (nurse practitioner or physician diploma medical assistant) may see this patient on follow-up visits and continue to implement the objectives of this plan including: Starting or adjusting medications, injections , cast application, orthotics, brace application, physical therapy, radiological studies (including x-ray, MRI, CT, ultrasound, bone scan), vascular studies, neurologic studies, specialist consultation, and proceeding with surgical management, as appropriate. MD ISAIAH Lopez/brandee /12:23 PM /1:19 PM SABI
--- NOTE | 2016-10-18 13:37 | RADRPT ---
EXAM DATE/TIME: 10/18/2016 11:54 [place] COMPARISON: No previous studies available for comparison. INDICATIONS : Left hip pinning. MEDICAL HISTORY : None. SURGICAL HISTORY : None. ENCOUNTER: Subsequent ACUITY: 1 day PAIN SCORE: Non-responsive. LOCATION: Left hip FINDINGS: 2 magnified C-arm spot views are centered over the hip joint and labeled left. 3 orthopedic screws ar e seen traversing the femoral neck. The screws are contained within the cortical confines of the femo ral head. Good alignment. CONCLUSION: Limited images as detailed above. George Teixeira Jr., MD on October 18, 2016 at 13:35 Board Certified Radiologist. This report was verified electronically.
[2016-10-18] MEDS ORDERED: ERGOCALCIFEROL (VIT D2) 50,000 UNIT CAP PO ONE (14:00)
[2016-10-18] MEDS ORDERED: PROP60TA PO (14:40)
[2016-10-18] MEDS ORDERED: PROP60CA PO (14:40)
[2016-10-18] MEDS ORDERED: TIMO0.5S30 EACH EYE (14:40)
[2016-10-18] MEDS ORDERED: LEVO75TA3 PO (14:40)
[2016-10-18] MEDS ORDERED: TRAV0.00 EACH EYE ×2 (14:40)
[2016-10-18] MEDS ORDERED: METH2.5T PO (14:40)
[2016-10-18] MEDS ORDERED: MELO7.5T4 PO (14:40)
--- NOTE | 2016-10-18 14:59 | HHI.PR ---
Subjective Remarks Patient seen postop. She reports she is feeling okay. Pain is controlled. Discussed with her son at bedside. She is not sure how she fell. Shee normally resides at an [facility]. Objective Vitals Vital Signs Date Time Temp Pulse Resp B/P (MAP) Pulse Ox O2 Delivery O2 Flow Rate FiO2 10/18/16 13:30 96.0 65 18 151/72 (98) 96 10/18/16 13:00 97.7 67 17 166/69 (101) 95 Nasal Cannula 2 10/18/16 12:45 63 19 159/70 (99) 95 Nasal Cannula 2 10/18/16 12:30 65 18 178/74 (108) 93 Nasal Cannula 2 10/18/16 12:15 68 19 161/71 (101) 93 Nasal Cannula 2 10/18/16 12:13 97.7 67 20 166/74 (104) 93 Nasal Cannula 2 10/18/16 07:48 98.7 71 18 142/78 (99) 93 10/18/16 04:20 98.6 75 18 114/75 (88) 95 10/18/16 00:20 96.8 70 19 114/75 (88) 99 10/17/16 20:20 96.8 70 19 114/75 (88) 99 10/17/16 19:48 Nasal Cannula 2.00 10/17/16 18:49 96.3 87 15 139/54 (82) 96 10/17/16 17:55 98.0 88 16 154/76 (102) 98 Nasal Cannula 2.00 I/O 10/17/16 10/17/16 10/17/16 10/18/16 10/18/16 10/18/16 07:00 15:00 23:00 07:00 15:00 23:00 Intake Total 320 ml 0 ml 800 ml Output Total 800 ml 150 ml 220 ml Balance -480 ml -150 ml 580 ml Intake Oral 320 ml 0 ml Other 800 ml Output Urine Total 800 ml 150 ml 200 ml Estimated Blood Loss 20 ml # Voids 1 # Bowel Movements 0 0 Result Diagram: 10/18/16 0711 10/18/16 0711 Imaging Last Impressions Hip X-Ray 10/18/16 0000 Signed Impressions: Service Date/Time: Tuesday, October 18, 2016 11:54 - CONCLUSION: Limited images as detailed above. George Teixeira Jr., MD Head CT 10/17/16 0950 Signed Impressions: Service Date/Time: September 10:38 - CONCLUSION: 1. Senescent changes. 2. Moderate periventricular small vessel ischemic changes. 3. No acute intracranial abnormality. Kai Owens MD Chest X-Ray 10/17/16 0950 Signed Impressions: Service Date/Time: September 10:58 - CONCLUSION: 1. No acute cardiopulmonary disease. Kai Owens MD Hip and Pelvis X-Ray 10/17/16 0000 Signed Impressions: Service Date/Time: September 11:03 - CONCLUSION: Subtle subcapital nondisplaced partial femoral neck fracture. Justo Evans MD Objective Remarks GENERAL: Elderly female in no apparent distress. CARDIOVASCULAR: Normal rate and regular rhythm without murmurs, gallops, or rubs. RESPIRATORY: Good respiratory efforts. Breath sounds equal and clear to auscultation bilaterally. GASTROINTESTINAL: Abdomen soft, non-tender, non-distended. Normal active bowel sounds MUSCULOSKELETAL: Left hip postop dressing appear intact. Extremities without cyanosis, or edema. NEURO: Alert & Oriented. Moves all ext x4 PSYCH: Appropriate mood and affect. A/P Assessment and Plan 89-year-old female with past medical history of dementia who was sent from [facility] after she was found down and found to have left femoral neck fracture Left femoral neck fracture: Hip x-ray showed subtle subcapital nondisplaced partial femoral neck fracture. -Orthopedic surgery following. Status post left hip pinning -Pain control with [place] and IV morphine Dementia with possible confusion: Head CT with chronic changes and no acute intracranial abnormality. Chest x-ray and UA clear. Afebrile with no leukocytosis. -Ativan as needed for agitation Other chronic medical conditions include HTN, hypothyroidism, stable at this time and will continue home medications as indicated. DVT prophylaxis: Lovenox Discharge Planning Possible DC to SNF in 1-2 days. Key Stallworth MD Oct 18, 2016 14:59
[2016-10-18 16:00] VITALS: BP 130/67; PULSE 61; RESP 18; TEMP 96.4; O2SAT 97
[2016-10-18 19:00] VITALS: BP 134/70; PULSE 81; RESP 17; TEMP 97.5; O2SAT 92
[2016-10-18] MEDS ORDERED: SODIUM CHLORIDE 0.9% FLUSH 5 ML FLUSH IVF SCH (21:00)
[2016-10-18] MEDS: ACETAMINOPHEN/HYDROcodone 325 MG/5 MG TAB PO PRN (22:47)
[2016-10-18] MEDS: LATANOPROST 0.005% OPHT SOLN 2.5 ML BTL EACH EYE SCH ×2 (22:49→22:52)
[2016-10-19] VITALS: BP 145/73; PULSE 87; RESP 16; TEMP 97; O2SAT 93
[2016-10-19] MEDS: ENOXAPARIN SODIUM 30 MG/0.3 ML SYRINGE SQ SCH (00:23)
[2016-10-19 04:00] VITALS: BP 161/74; PULSE 71; RESP 16; TEMP 96.6; O2SAT 97
[2016-10-19] MEDS: LEVOTHYROXINE SODIUM 75 MCG TAB PO SCH (04:55)
[2016-10-19 06:09] LABS: HEMATOCRIT 36.5 % (35.0-46.0); REVIEW FLAG FINAL
[2016-10-19 06:10] LABS: HEMATOCRIT 37.9 % (35.0-46.0); MEAN CELL VOLUME 97.9 FL (80.0-100.0); MEAN CORPUSCULAR HGB CONC 32.7 % (32.0-36.0); PLATELET COUNT 207 TH/MM3 (150-450); RED BLOOD COUNT 3.87 MIL/MM3 (4.00-5.30); RED CELL DISTRIBUTION WIDTH 15.6 % (11.6-17.2); REVIEW FLAG FINAL; WHITE BLOOD COUNT 16.2 TH/MM3 (4.0-11.0)
[2016-10-19 06:27] LABS: POTASSIUM 3.9 MEQ/L (3.5-5.1)
--- NOTE | 2016-10-19 07:33 | PD.ORT.PN ---
Subjective Subjective Remarks No complaint. Pain with left hip. No new complaints Objective Vitals Vital Signs Date Time Temp Pulse Resp B/P (MAP) Pulse Ox O2 Delivery O2 Flow Rate FiO2 10/19/16 04:00 96.6 71 16 161/74 (103) 97 10/19/16 00:00 97.0 87 16 145/73 (97) 93 10/18/16 19:00 97.5 81 17 134/70 (91) 92 10/18/16 18:12 Nasal Cannula 10/18/16 16:00 96.4 61 18 130/67 (88) 97 10/18/16 13:30 96.0 65 18 151/72 (98) 96 10/18/16 13:00 97.7 67 17 166/69 (101) 95 Nasal Cannula 2 10/18/16 12:45 63 19 159/70 (99) 95 Nasal Cannula 2 10/18/16 12:30 65 18 178/74 (108) 93 Nasal Cannula 2 10/18/16 12:15 68 19 161/71 (101) 93 Nasal Cannula 2 10/18/16 12:13 97.7 67 20 166/74 (104) 93 Nasal Cannula 2 10/18/16 07:48 98.7 71 18 142/78 (99) 93 I/O 10/18/16 10/18/16 10/18/16 10/19/16 10/19/16 10/19/16 07:00 15:00 23:00 07:00 15:00 23:00 Intake Total 0 ml 800 ml 580 ml 240 ml Output Total 150 ml 220 ml 300 ml 300 ml Balance -150 ml 580 ml 280 ml -60 ml Intake Oral 0 ml 480 ml 240 ml IV Total 100 ml Other 800 ml Output Urine Total 150 ml 200 ml 300 ml 300 ml Estimated Blood Loss 20 ml # Bowel Movements 0 0 0 Result Diagram: 10/19/16 0531 10/19/16 0531 Imaging Last [address] 10/17/16 0950 Signed Impressions: Service Date/Time: September 10:38 - CONCLUSION: 1. Senescent changes. 2. Moderate periventricular small vessel ischemic changes. 3. No acute intracranial abnormality. Kai Owens MD Chest X-Ray 10/17/16 0950 Signed Impressions: Service Date/Time: September 10:58 - CONCLUSION: 1. No acute cardiopulmonary disease. Kai Owens MD Objective Remarks Moderate dementia. Dressing dry. No calf tenderness. Neuro exam normal Assessment & Plan Assessment and Plan 1) Left femoral Neck Fx--postop day #1 status post pinning Lovenox/Xarelto Physical therapy--toe-touch weightbearing Case management for SNF planning Discharge to rehabilitation on Friday or Friday Stable orthopedically Guicho Nolasco MD Oct 19, 2016 07:33
[2016-10-19 08:00] VITALS: BP 142/78; PULSE 65; RESP 15; TEMP 96.6; O2SAT 91
[2016-10-19] MEDS: TIMOLOL MALEATE 0.5% OPHT SOLN 5 ML BTL EACH EYE SCH (08:00)
[2016-10-19] MEDS: PROPRANOLOL HCL 40 MG TAB PO SCH ×2 (08:48→21:24)
[2016-10-19] MEDS: CHOLECALCIFEROL (VIT D3) 5000 UNIT CAP PO SCH (08:48)
[2016-10-19] MEDS: SODIUM CHLORIDE 0.9% FLUSH 10 ML FLUSH IV FLUSH SCH ×2 (08:49→21:24)
[2016-10-19 12:00] VITALS: BP 121/63; PULSE 71; RESP 17; TEMP 96.5; O2SAT 91
--- NOTE | 2016-10-19 13:08 | HHI.PR ---
Subjective Remarks Patient reports she is feeling ok. Pleasant and smiling. Objective Vitals Vital Signs Date Time Temp Pulse Resp B/P (MAP) Pulse Ox O2 Delivery O2 Flow Rate FiO2 10/19/16 12:00 96.5 71 17 121/63 (82) 91 10/19/16 11:27 10/19/16 08:09 Room Air 10/19/16 08:00 96.6 65 15 142/78 (99) 91 10/19/16 04:00 96.6 71 16 161/74 (103) 97 10/19/16 00:00 97.0 87 16 145/73 (97) 93 10/18/16 19:00 97.5 81 17 134/70 (91) 92 10/18/16 18:12 Nasal Cannula 10/18/16 16:00 96.4 61 18 130/67 (88) 97 10/18/16 13:30 96.0 65 18 151/72 (98) 96 I/O 10/18/16 10/18/16 10/18/16 10/19/16 10/19/16 10/19/16 06:59 14:59 22:59 06:59 14:59 22:59 Intake Total 0 ml 800 ml 580 ml 240 ml 0 ml Output Total 150 ml 220 ml 300 ml 300 ml Balance -150 ml 580 ml 280 ml -60 ml 0 ml Intake Oral 0 ml 480 ml 240 ml IV Total 100 ml 0 ml Other 800 ml Output Urine Total 150 ml 200 ml 300 ml 300 ml Estimated Blood Loss 20 ml # Bowel Movements 0 0 0 Result Diagram: 10/19/1653010/19/16530 Objective Remarks GENERAL: Elderly female in no apparent distress. CARDIOVASCULAR: Normal rate and regular rhythm without murmurs, gallops, or rubs. RESPIRATORY: Good respiratory efforts. Breath sounds equal and clear to auscultation bilaterally. GASTROINTESTINAL: Abdomen soft, non-tender, non-distended. Normal active bowel sounds MUSCULOSKELETAL: Left hip postop dressing appear intact. Extremities without cyanosis, or edema. NEURO: Alert & Oriented to self. Demented. Moves all ext x4 PSYCH: Appropriate mood and affect. A/P Assessment and Plan 89-year-old female with past medical history of dementia who was sent from [facility] after she was found down and found to have left femoral neck fracture Left femoral neck fracture: Hip x-ray showed subtle subcapital nondisplaced partial femoral neck fracture. -Orthopedic surgery following. Status post left hip pinning -Pain control with [place] and IV morphine - PT Dementia with possible confusion: Head CT with chronic changes and no acute intracranial abnormality. Chest x-ray and UA clear. Afebrile with no leukocytosis. -Ativan as needed for agitation Other chronic medical conditions include HTN, hypothyroidism, stable at this time and will continue home medications as indicated. DVT prophylaxis: Lovenox Discharge Planning Possible DC to SNF in 1-2 days. Key Stallworth MD Oct 19, 2016 13:07
[2016-10-19 16:00] VITALS: BP 121/72; PULSE 70; RESP 17; TEMP 96.7; O2SAT 91
[2016-10-19 19:00] VITALS: BP 140/72; PULSE 71; RESP 18; TEMP 97.2; O2SAT 95
[2016-10-20] VITALS: BP 142/90; PULSE 79; RESP 17; TEMP 96.2; O2SAT 97
[2016-10-20] MEDS: ENOXAPARIN SODIUM 30 MG/0.3 ML SYRINGE SQ SCH (00:17)
[2016-10-20] MEDS: ACETAMINOPHEN/HYDROcodone 325 MG/5 MG TAB PO PRN (01:45)
[2016-10-20] MEDS: LEVOTHYROXINE SODIUM 75 MCG TAB PO SCH (05:57)
--- NOTE | 2016-10-20 07:46 | PD.ORT.PN ---
Subjective Subjective Remarks Very pleasant but somewhat demented. Answers most questions when asked. Denies any new leg pain. RN at bedside states no interval complaints overnight. Objective Vitals Vital Signs Date Time Temp Pulse Resp B/P (MAP) Pulse Ox O2 Delivery O2 Flow Rate FiO2 10/20/16 00:00 96.2 79 17 142/90 (107) 97 10/19/16 19:07 Room Air 10/19/16 19:00 97.2 71 18 140/72 (94) 95 10/19/16 16:00 96.7 70 17 121/72 (88) 91 10/19/16 13:47 10/19/16 12:00 96.5 71 17 121/63 (82) 91 10/19/16 11:27 10/19/16 08:09 Room Air 10/19/16 08:00 96.6 65 15 142/78 (99) 91 I/O 10/19/16 10/19/16 10/19/16 10/20/16 10/20/16 10/20/16 07:00 15:00 23:00 07:00 15:00 23:00 Intake Total 240 ml 400 ml 480 ml 200 ml Output Total 300 ml Balance -60 ml 400 ml 480 ml 200 ml Intake Oral 240 ml 400 ml 480 ml 200 ml IV Total 0 ml Output Urine Total 300 ml # Voids 3 1 3 # Bowel Movements 0 0 0 0 Result Diagram: 10/19/16 0531 10/19/16 0531 Imaging Last [address] 10/17/16 0950 Signed Impressions: Service Date/Time: September 10:38 - CONCLUSION: 1. Senescent changes. 2. Moderate periventricular small vessel ischemic changes. 3. No acute intracranial abnormality. Kai Owens MD Chest X-Ray 10/17/16 0950 Signed Impressions: Service Date/Time: September 10:58 - CONCLUSION: 1. No acute cardiopulmonary disease. Kai Owens MD Objective Remarks Laying in bed NAD VSS LLE Dressing c/d/i, no new drainage, mild swelling, no erythema +ant tib motor strength, +sens, +nvi neg homans Assessment & Plan Ortho Post Op Day #: 1 Problem List: Assessment and Plan pod#2 s/p ORIF L Hip, perc screws Ortho stable. No interval changes overnight. Lovenox/Xarelto Physical therapy--toe-touch weightbearing PO pain control as needed. Dressing changes as written. D/C to SNF when med stable. Cindy Street Oct 20, 2016 07:46
[2016-10-20 08:00] VITALS: BP 161/97; PULSE 64; RESP 17; TEMP 96.6; O2SAT 94
[2016-10-20] MEDS: TIMOLOL MALEATE 0.5% OPHT SOLN 5 ML BTL EACH EYE SCH (08:34)
[2016-10-20] MEDS: PROPRANOLOL HCL 40 MG TAB PO SCH ×2 (08:34→20:23)
[2016-10-20] MEDS: CHOLECALCIFEROL (VIT D3) 5000 UNIT CAP PO SCH (08:34)
[2016-10-20] MEDS: SODIUM CHLORIDE 0.9% FLUSH 10 ML FLUSH IV FLUSH SCH ×2 (08:35→20:44)
[2016-10-20 12:00] VITALS: BP 140/72; PULSE 63; RESP 18; TEMP 97; O2SAT 100
--- NOTE | 2016-10-20 13:24 | HHI.PR ---
Subjective Remarks Patient reports feeling ok except for some pain that is controlled with medications. Blood pressure intermittently elevated. Objective Vitals Vital Signs Date Time Temp Pulse Resp B/P (MAP) Pulse Ox O2 Delivery O2 Flow Rate FiO2 10/20/16 08:00 96.6 64 17 161/97 (118) 94 10/20/16 00:00 96.2 79 17 142/90 (107) 97 10/19/16 19:07 Room Air 10/19/16 19:00 97.2 71 18 140/72 (94) 95 10/19/16 16:00 96.7 70 17 121/72 (88) 91 10/19/16 13:47 I/O 10/19/16 10/19/16 10/19/16 10/20/16 10/20/16 10/20/16 06:59 14:59 22:59 06:59 14:59 22:59 Intake Total 240 ml 400 ml 480 ml 200 ml Output Total 300 ml Balance -60 ml 400 ml 480 ml 200 ml Intake Oral 240 ml 400 ml 480 ml 200 ml IV Total 0 ml Output Urine Total 300 ml # Voids 3 1 3 # Bowel Movements 0 0 0 0 Result Diagram: 10/19/1653010/19/16530 Objective Remarks GENERAL: Elderly female in no apparent distress. Sitting up in the chair. CARDIOVASCULAR: Normal rate and regular rhythm without murmurs, gallops, or rubs. RESPIRATORY: Good respiratory efforts. Breath sounds equal and clear to auscultation bilaterally. GASTROINTESTINAL: Abdomen soft, non-tender, non-distended. Normal active bowel sounds MUSCULOSKELETAL: Left hip postop dressing appear intact. Extremities without cyanosis, or edema. NEURO: Alert & Oriented to self. Demented. Moves all ext x4 PSYCH: Appropriate mood and affect. A/P Assessment and Plan 89-year-old female with past medical history of dementia who was sent from [facility] after she was found down and found to have left femoral neck fracture Left femoral neck fracture: Hip x-ray showed subtle subcapital nondisplaced partial femoral neck fracture. -Orthopedic surgery following. Status post left hip pinning -Pain control with [place] and IV morphine - PT. Plan to continue rehabilitation at SNF. Dementia with possible confusion: Head CT with chronic changes and no acute intracranial abnormality. Chest x-ray and UA clear. Afebrile with no leukocytosis. -Ativan as needed for agitation Hypertension: Intermittently uncontrolled. Likely related to pain. Continue propranolol. Pain control. Other chronic medical conditions include hypothyroidism, stable at this time and will continue home medications as indicated. DVT prophylaxis: Lovenox Discharge Planning Plan to DC to SNF tomorrow. Ideally patient would go back to the rehabilitation portion of [facility] where she has been living in the [facility]. Key Stallworth MD Oct 20, 2016 13:24
[2016-10-20] MEDS ORDERED: ENALAPRILAT 1.25 MG/ML VIAL IV PRN (13:30)
[2016-10-20 16:00] VITALS: BP 144/75; PULSE 65; RESP 17; TEMP 97; O2SAT 98
[2016-10-20] MEDS: LATANOPROST 0.005% OPHT SOLN 2.5 ML BTL EACH EYE SCH (20:29)
[2016-10-20 20:45] VITALS: BP 158/79; PULSE 69; RESP 17; TEMP 97.5; O2SAT 93
[2016-10-20 23:19] VITALS: BP 110/59; PULSE 81; RESP 17; TEMP 97; O2SAT 92
[2016-10-21] MEDS: ENOXAPARIN SODIUM 30 MG/0.3 ML SYRINGE SQ SCH (00:29)
[2016-10-21 04:42] VITALS: BP 146/66; PULSE 61; RESP 17; TEMP 96.7; O2SAT 95
[2016-10-21] MEDS: ACETAMINOPHEN/HYDROcodone 325 MG/5 MG TAB PO PRN ×2 (04:46→19:11)
[2016-10-21] MEDS: LEVOTHYROXINE SODIUM 75 MCG TAB PO SCH (04:46)
--- NOTE | 2016-10-21 07:05 | PD.ORT.PN ---
Subjective Subjective Remarks Resting comfortably but confused Objective Vitals Vital Signs Date Time Temp Pulse Resp B/P (MAP) Pulse Ox O2 Delivery O2 Flow Rate FiO2 10/21/16 04:42 96.7 61 17 146/66 (92) 95 10/20/16 23:19 97.0 81 17 110/59 (76) 92 10/20/16 20:45 97.5 69 17 158/79 (105) 93 10/20/16 16:00 97.0 65 17 144/75 (98) 98 10/20/16 12:00 97.0 63 18 140/72 (94) 100 10/20/16 08:45 Room Air 10/20/16 08:00 96.6 64 17 161/97 (118) 94 I/O 10/20/16 10/20/16 10/20/16 10/21/16 10/21/16 10/21/16 06:59 14:59 22:59 06:59 14:59 22:59 Intake Total 200 ml 720 ml Balance 200 ml 720 ml Intake Oral 200 ml 720 ml # Voids 3 4 # Bowel Movements 0 0 Result Diagram: 10/19/16 0531 10/19/16 0531 Imaging Last [address] 10/17/16 0950 Signed Impressions: Service Date/Time: September 10:38 - CONCLUSION: 1. Senescent changes. 2. Moderate periventricular small vessel ischemic changes. 3. No acute intracranial abnormality. Kai Owens MD Chest X-Ray 10/17/16 0950 Signed Impressions: Service Date/Time: September 10:58 - CONCLUSION: 1. No acute cardiopulmonary disease. Kai Owens MD Objective Remarks Laying in bed NAD VSS LLE Dressing c/d/i, no new drainage, mild swelling, no erythema +ant tib motor strength, +sens, +nvi neg homans Assessment & Plan Assessment and Plan pod#3 s/p ORIF L Hip, perc screws Ortho stable. No interval changes overnight. Lovenox/Xarelto Physical therapy--toe-touch weightbearing PO pain control as needed. Dressing changes as written. D/C to SNF when med stable - orthopedically cleared Follow-up with Dr. Wolff or PA in 2 weeks Jean Fleming Jr. Oct 21, 2016 07:05
[2016-10-21] MEDS ORDERED: WALKER/ADULT/FO1 MIS (07:08)
[2016-10-21 08:19] VITALS: BP 159/77; PULSE 60; RESP 17; TEMP 96.2; O2SAT 94
[2016-10-21] MEDS: SODIUM CHLORIDE 0.9% FLUSH 10 ML FLUSH IV FLUSH SCH (09:00)
[2016-10-21] MEDS ORDERED: METHOTREXATE 2.5 MG TAB PO SCH (09:00)
[2016-10-21] MEDS ORDERED: PROPRANOLOL HCL 20 MG TAB PO SCH (09:00)
[2016-10-21] MEDS ORDERED: SENNOSIDES 8.6 MG TAB PO PRN (10:45)
[2016-10-21] MEDS ORDERED: LACTULOSE SYRUP 20 GM/30 ML CUP PO PRN (10:45)
[2016-10-21] MEDS ORDERED: MAGNESIUM HYDROXIDE SUSP 30 ML CUP PO PRN (10:45)
[2016-10-21] MEDS ORDERED: BISACODYL 10 MG SUPP RECTAL PRN (10:45)
--- NOTE | 2016-10-21 10:49 | HHI.DS ---
Discharge Summary Admission Date Oct 17, 2016 at 12:30 Discharge Date: Oct 21, 2016 Admitting Diagnosis hip fracture, fall, confusion (1) Dementia ICD Code: F03.90 - Unspecified dementia without behavioral disturbance (2) Fall ICD Code: W19.XXXA - Fall Status: Acute (3) Hip fracture ICD Code: S72.009A - Fracture of unspecified part of neck of unspecified femur , initial encounter for closed fracture Status: Acute Procedures Left hip pinning. Brief History - From Admission 89-year-old female with past medical history of dementia who was sent from alf after she was found down. The patient has dementia and is normally oriented to self. She was trying to get out of bed in the ED, received Ativan and is currently sedated and unable to provide any history. History obtained from the EMR and ED communication. The patient resides at [facility]. She was found down for unknown amount of time. She was unable to get off the floor and complained of left hip pain so she was sent to the ED. Patient was found to have left femoral neck fracture. ED contacted orthopedics. CBC/BMP: 10/19/16 0531 10/19/16 0531 Significant Findings Laboratory Tests Test 10/19/16 05:24 10/19/16 05:31 White Blood Count 16.2 TH/MM3 (4.0-11.0) Red Blood Count 3.87 MIL/MM3 (4.00-5.30) Blood Urea Nitrogen 21 MG/DL (7-18) Random Glucose 116 MG/DL (74-106) Sodium Level 135 MEQ/L (136-145) Estimat Glomerular Filtration Rate 56 ML/MIN (>89) Imaging Last Impressions Hip X-Ray 10/18/16 0000 Signed Impressions: Service Date/Time: Tuesday, October 18, 2016 11:54 - CONCLUSION: Limited images as detailed above. George Teixeira Jr., MD Head CT 10/17/16 0950 Signed Impressions: Service Date/Time: September 10:38 - CONCLUSION: 1. Senescent changes. 2. Moderate periventricular small vessel ischemic changes. 3. No acute intracranial abnormality. Kai Owens MD Chest X-Ray 10/17/16 0950 Signed Impressions: Service Date/Time: September 10:58 - CONCLUSION: 1. No acute cardiopulmonary disease. Kai Owens MD Hip and Pelvis X-Ray 10/17/16 0000 Signed Impressions: Service Date/Time: September 11:03 - CONCLUSION: Subtle subcapital nondisplaced partial femoral neck fracture. Justo Evans MD PE at Discharge GENERAL: Elderly female in no apparent distress. Sitting up in the chair. CARDIOVASCULAR: Normal rate and regular rhythm without murmurs, gallops, or rubs. RESPIRATORY: Good respiratory efforts. Breath sounds equal and clear to auscultation bilaterally. GASTROINTESTINAL: Abdomen soft, non-tender, non-distended. Normal active bowel sounds MUSCULOSKELETAL: Left hip postop dressing appear intact. Extremities without cyanosis, or edema. NEURO: Alert & Oriented to self. Demented. Moves all ext x4 PSYCH: Appropriate mood and affect. Pt update on day of discharge Patient reports she is feeling ok. Pain is controlled. Hospital Course 89-year-old female with past medical history of dementia who was sent from [facility] after she was found down and found to have left femoral neck fracture. Evaluation and treatment course detailed below: Left femoral neck fracture: Hip x-ray showed subtle subcapital nondisplaced partial femoral neck fracture. - Orthopedic surgery followed the patient. She underwent left hip pinning. - Continue rehabilitation at SNF. Dementia with possible confusion on admission: She returned to baseline. Hypertension: Intermittently uncontrolled. Likely related to pain. Better controlled. Continue Propranolol. Other chronic medical conditions include hypothyroidism, stable at this time and will continue home medications as indicated. Pt Condition on Discharge: Good Discharge Disposition: Discharge to SNF Discharge Time: > 30 minutes Discharge Instructions DIET: Follow Instructions for: As Tolerated, No Restrictions Activities you can perform: Regular-No Restrictions Follow up Referrals: Orthopedics - 2 Weeks @ [facility] with Aquilino Hankins MD New Medications: Hydrocodone-Acetaminophen ([place]) 5-325 mg Tab 1 TAB PO Q4H PRN for PAIN, #50 TAB 0 Refills Rivaroxaban (Xarelto) 10 Mg Tab 10 MG PO DAILY for Blood Clot Prevention, #14 TAB 0 Refills Walker/Adult/Folding (Walker/Adult/Folding) 1 Mis Mis EA .ROUTE DIRECTED, #1 0 Refills Continued Medications: Levothyroxine (Levothyroxine) 75 Mcg Tab 75 MCG PO DAILY for Thyroid, #30 TAB 0 Refills Meloxicam (Meloxicam) 7.5 Mg Tab 7.5 MG PO DAILY for Arthritis Pain, TAB 0 Refills Methotrexate (Methotrexate) 2.5 Mg Tab 2.5 MG PO Q7D, TAB 0 Refills Propranolol (Propranolol) 60 Mg Tab 60 MG PO Q12HR, #60 TAB 0 Refills Timolol Opth Drops (Timolol Opth Drops) 0.5 % Soln 1 DROP EACH EYE DAILYAC for Glaucoma, #1 BOTTLE 0 Refills Travoprost Opth Drops (Travatan Z Opth Drops) 0.004 % Soln 1 DROP EACH EYE HS for Glaucoma, #1 BOTTLE 0 Refills Key Stallworth MD Oct 21, 2016 10:49
[2016-10-21] MEDS: CHOLECALCIFEROL (VIT D3) 5000 UNIT CAP PO SCH (11:11)
[2016-10-21] MEDS: TIMOLOL MALEATE 0.5% OPHT SOLN 5 ML BTL EACH EYE SCH (11:12)
[2016-10-21 12:19] VITALS: BP 144/65; PULSE 65; RESP 17; TEMP 95.6; O2SAT 97
[2016-10-21 16:00] VITALS: BP 166/72; PULSE 61; RESP 17; TEMP 95.9; O2SAT 91
== END 2016-10-21 19:58 | DRG 482 ==
LOC: NEPC 08:58 → NEDA 12:30 → N06A 18:00
PROVIDERS: ADMIT Family Medicine; ATTEND Family Medicine
PROC: 0QS704Z Reposition Left Upper Femur with Internal Fixation Device, Open Approach (ICD-10-PCS; principal; 2016-10-18 11:06)
DX: S72.012A Unspecified intracapsular fracture of left femur, initial encounter for closed fracture (principal); F03.90 Unspecified dementia, unspecified severity, without behavioral disturbance, psychotic disturbance, mood disturbance, and anxiety; M06.9 Rheumatoid arthritis, unspecified; I10 Essential (primary) hypertension; H40.9 Unspecified glaucoma; W19.XXXA Unspecified fall, initial encounter; G89.29 Other chronic pain; M81.0 Age-related osteoporosis without current pathological fracture; M54.2 Cervicalgia; E03.9 Hypothyroidism, unspecified; Z87.891 Personal history of nicotine dependence; Y92.092 Bedroom in other non-institutional residence as the place of occurrence of the external cause
CPT/HCPCS: 70450; 71010; 73502; 76000; 80048; 80053; 80307; 81001; 82306; 82550; 83605; 84443; 84484; 85014; 85018; 85025; 85027; 85610; 87040; 93005; 96374; C1713; J0690; J1580; J1650; J2060; J2270; J2370; J2405; J3010; J3370; J7050; J7120; J8610

== ENCOUNTER 2016-12-30 11:37 | Inpatient (IN) | payer MEDICARE, OTHER ==
[~2016-12-30] VITALS: Ht 157.5 cm; Wt 41.1 kg
[2016-12-30] VITALS (10 sets, daily range): BP systolic 155–191; BP diastolic 67–94; PULSE 65–76; RESP 18; TEMP 97.3–98; O2SAT 93–96
[~2016-12-30 11:37] MED LIST changes: -AUGM875T PO; -CALC600T34 PO; -CENTCHW3 PO; +LEVO75TA3 PO; -LEVO88TA21 PO; -MAGN250T3 PO; -MELO15TA2 PO; +MELO7.5T27 PO; -MEMA10 PO; -METH2.5 PO; +METH2.5T PO; +NORC5TAB PO; -PRESCAP6 PO; +PROP60CA PO; +PROP60TA PO; -PROP60TA2 PO; +TIMO0.5S30 EACH EYE; -TIMO0.5S6 OD; -VITA400C70 PO; -VITA500T10 PO; +WALKER/ADULT/FO1 MIS; +XARE10TA PO
[2016-12-30] MEDS ORDERED: SODIUM CHLOR 0.9% 1000 ML INJ 1,000 ML IV ONE (11:45)
--- NOTE | 2016-12-30 11:49 | PD ---
HPI Chief Complaint: Stroke Alert Time Seen by Provider: 11:45 Travel History International Travel<30 days: No Contact w/Intl Traveler<30days: No Traveled to known affect area: No History of Present Illness HPI 89-year-old female came to the emergency room with history of difficulty speaking this morning at the rehabilitation facility. Patient has been in the rehabilitation facility for hip replacement surgery. She was seen last normal at 8:30 in the morning by the staff. Sometime soon after patient started having difficulty speaking and she used her call abarca to get the staff's attention. EMS was called. They noticed expressive aphasia on the patient without any unilateral deficit. Vital signs as been stable. Patient is not on any blood thinners as per the paramedics. She was awake and anxious. Patient is able to understand the questions and is trying to answer. Patient has history of atrial fibrillation. No previous history of stroke. PFSH Past Medical History Narrative Medical List of her past medical, surgical, social and family history is reviewed from the nursing note. Arthritis: Yes (RA) Autoimmune Disease: Yes (RA) Blood Disorders: No Heart Rhythm Problems: No Cancer: No Cardiovascular Problems: Yes High Cholesterol: No Chemotherapy: No Chest Pain: No Congestive Heart Failure: No Cerebrovascular Accident: No Glaucoma: Yes Genitourinary: No Headaches: No Hypertension: Yes Immune Disorder: No Musculoskeletal: Yes Neurologic: Yes Psychiatric: No Reproductive: No Respiratory: No Migraines: No Myocardial Infarction: No Radiation Therapy: No Seizures: No Sickle Cell Disease: No Past Surgical History AICD: No Arteriovenous Shunt: No Body Medical Devices: NECK HARDWARE Insulin Pump: No Joint Replacement: No Pacemaker: No Other Surgery: Yes (ANTERIOR CERV. FUSION. POST CERV FUSION. CR L WRIST. R CATARACT REMOVAL) Social History Alcohol Use: Yes (RARE) Tobacco Use: No (QUIT 40 YEARS AGO) Substance Use: No Allergies-Medications (Allergen,Severity, Reaction): Coded Allergies: Sulfa (Sulfonamide Antibiotics) (Verified Allergy, Severe, Rash, 12/30/16) Comments List of her allergies reviewed from the nursing note. Reported Meds & Prescriptions Reported Meds & Active Scripts Active Walker/Adult/Folding (Device) 1 Mis Mis Ea .ROUTE DIRECTED [place] (Hydrocodone-Acetaminophen) 5-325 mg Tab 1 Tab PO Q4H PRN Reported Tylenol (Acetaminophen) 325 Mg Tab 650 Mg PO Q6H PRN Tramadol (Tramadol HCl) 50 Mg Tab 50 Mg PO Q6H PRN Miralax Powder (Polyethylene Glycol 3350 Powder) 17 Gm Powd 17 Gm PO DAILY Mix and dissolve one measuring cap-ful (17 grams) in water or juice. Calcitonin ([place]) Nasal [place] (Calcitonin [place]) 200 Units/Act Soln 1 [place] NASAL DAILY Alternate nostrils daily. Propranolol (Propranolol HCl) 60 Mg Tab 60 Mg PO DAILY Levothyroxine (Levothyroxine Sodium) 75 Mcg Tab 75 Mcg PO DAILY Timolol Opth Drops 0.5 % Soln 1 Drop EACH EYE DAILYAC Travatan Z Opth Drops (Travoprost) 0.004 % Soln 1 Drop EACH EYE HS Meloxicam 7.5 Mg Tab 7.5 Mg PO DAILY Methotrexate 2.5 Mg Tab 2.5 Mg PO Q7D Narrative Medication List of her home medications reviewed from the nursing note. Review of Systems Except as stated in HPI: all other systems reviewed are Neg Neurologic: Positive: Slurred Speech, Other (difficulty speaking) Physical Exam Narrative GENERAL: Awake, alert, elderly, frail, anxious SKIN: Focused skin assessment warm/dry. HEAD: Atraumatic. Normocephalic. EYES: Pupils equal and round. No scleral icterus. No injection or drainage. ENT: No nasal bleeding or discharge. Mucous membranes pink and moist. NECK: Trachea midline. No JVD. CARDIOVASCULAR: Regular rate and rhythm. No murmur appreciated. RESPIRATORY: No accessory muscle use. Clear to auscultation. Breath sounds equal bilaterally. GASTROINTESTINAL: Abdomen soft, non-tender, nondistended. Hepatic and splenic margins not palpable. MUSCULOSKELETAL: No obvious deformities. No clubbing. No cyanosis. No edema. NEUROLOGICAL: Awake and alert. NIH stroke score of 2-2 mild dysphasia and mild dysarthria PSYCHIATRIC: Appropriate mood and affect; insight and judgment normal. Data Data Last Documented VS Vital Signs Date Time Temp Pulse Resp B/P (MAP) Pulse Ox O2 Delivery O2 Flow Rate FiO2 12/30/16 12:29 71 161/74 (103) 12/30/16 12:25 96 Room Air 12/30/16 12:20 18 12/30/16 11:30 21 Orders Orders Diet Npo (12/30/16 Lunch) Electrocardiogram (12/30/16 ) I-Stat Creatinine (12/30/16 11:45) I-Stat Profile (12/30/16 11:45) Prothrombin Time / Inr (Pt) (12/30/16 11:45) Act Partial Throm Time (Ptt) (12/30/16 11:45) Complete Blood Count With Diff (12/30/16 11:45) Fibrinogen (12/30/16 11:45) Creatine Kinase (Cpk) (12/30/16 11:45) Troponin I (12/30/16 11:45) Ua Includes Microscopic (12/30/16 11:45) Drug Screen, Random Urine (12/30/16 11:45) Type And Screen (12/30/16 11:45) Ct Brain W/O Iv Contrast(Rout) (12/30/16 ) Beta Hcg (Quant/Titer) (12/30/16 11:45) Consult Neurology (12/30/16 ) Blood Glucose (12/30/16 11:45) Ecg Monitoring (12/30/16 11:45) Neuro Checks Q2HX12,Q4H (12/30/16 11:45) Nursing Bedside Swallow Assess .ONCE (12/30/16 11:45) Iv Access Insert/Monitor (12/30/16 11:45) NPO (12/30/16 11:45) Oximetry (12/30/16 11:45) Oxygen Administration (12/30/16 11:45) Sodium Chlor 0.9% 1000 Ml Inj (Ns 1000 M (12/30/16 11:45) Resp Oxygen Jasen C Titrat 1-4 L (12/30/16 11:45) Cath For Specimen (12/30/16 11:45) (Hub Use Only)Inp Phy Cons/Ref (12/30/16 ) Sodium Chlor 0.9% 250 Ml Inj (Ns 250 Ml (12/30/16 13:00) Calcitonin Jasen Spr (Miacalcin Jasen Spr) (12/31/16 09:00) Levothyroxine (Synthroid) (12/31/16 06:00) Polyethylene Glycol (Miralax) (12/31/16 09:00) Timolol 0.5% Opth Soln (Timoptic 0.5% Op (12/31/16 09:00) Admit To Inpatient (12/30/16 ) Vital Signs (Adult) Q4H (12/30/16 13:11) Neuro Checks Q4H (12/30/16 13:11) Bedside Glucose BRI.CSUGAR (12/30/16 13:11) Test Evaluator / Telemetry .CONTINUOUS (12/30/16 13:11) Intake + Output BRI.QSHIFT (12/30/16 13:11) Sodium Chlor 0.9% 1000 Ml Inj (Ns 1000 M (12/30/16 15:00) Sodium Chloride 0.9% Flush (Ns Flush) (12/30/16 13:15) Sodium Chloride 0.9% Flush (Ns Flush) (12/30/16 21:00) Acetaminophen (Tylenol) (12/30/16 13:15) Ondansetron Inj (Zofran Inj) (12/30/16 13:15) Comprehensive Metabolic Panel (12/31/16 06:00) Complete Blood Count With Diff (12/31/16 06:00) Pt Request For Service (12/30/16 13:11) Ot Request For Service (12/30/16 13:11) Speech Therapy Consult-Eval/Tx (12/30/16 13:11) Case Management Consult (12/30/16 13:11) Enoxaparin Inj (Lovenox Inj) (12/30/16 16:00) Acetaminophen (Tylenol) (12/30/16 13:15) Acetamin-Hydrocod 325-5 Mg ([place] 5-325 (12/30/16 13:15) Naloxone Inj (Narcan Inj) (12/30/16 13:15) Docusate Sodium-Senna (Mila-Colace) (12/30/16 21:00) Inpatient Certification (12/30/16 ) Chest, Single Ap (12/30/16 ) Admit Order (Ed Use Only) (12/30/16 13:17) Latanoprost 0.005% Opth Soln (Xalatan 0. (12/31/16 21:00) Labs Laboratory Tests Test 12/30/16 11:50 12/30/16 12:11 White Blood Count 13.3 TH/MM3 Red Blood Count 3.87 MIL/MM3 Hemoglobin 12.1 GM/DL Bedside Hemoglobin 13.3 G/DL Hematocrit 37.0 % Bedside Hematocrit 39.0 % Mean Corpuscular Volume 95.7 FL Mean Corpuscular Hemoglobin 31.4 PG Mean Corpuscular Hemoglobin Concent 32.8 % Red Cell Distribution Width 16.6 % Platelet Count 268 TH/MM3 Mean Platelet Volume 10.1 FL Neutrophils (%) (Auto) 76.3 % Lymphocytes (%) (Auto) 9.7 % Monocytes (%) (Auto) 10.3 % Eosinophils (%) (Auto) 2.9 % Basophils (%) (Auto) 0.8 % Neutrophils # (Auto) 10.1 TH/MM3 Lymphocytes # (Auto) 1.3 TH/MM3 Monocytes # (Auto) 1.4 TH/MM3 Eosinophils # (Auto) 0.4 TH/MM3 Basophils # (Auto) 0.1 TH/MM3 CBC Comment AUTO DIFF Differential Comment AUTO DIFF CONFIRMED Prothrombin Time 11.7 SEC Prothromb Time International Ratio 1.1 RATIO Activated Partial Thromboplast Time 27.8 SEC Fibrinogen 392 mg/dL Bedside Sodium 140 MMOL/L Bedside Potassium 4.6 MMOL/L Bedside Chloride 100 MMOL/L Bedside Blood Urea Nitrogen 24 MG/DL Bedside Creatinine 1.1 MG/DL Bedside Glucose 107 MG/DL Hemoglobin A1c 5.6 % Phosphorus Level 3.6 MG/DL Magnesium Level 1.9 MG/DL Total Creatine Kinase 45 U/L Troponin I LESS THAN 0.02 NG/ML Triglycerides Level 153 MG/DL Cholesterol Level 165 MG/DL LDL Cholesterol 61 MG/DL HDL Cholesterol 73.9 MG/DL Cholesterol/HDL Ratio 2.23 RATIO Human Chorionic Gonadotropin, Quant LESS THAN 1 MIU/ML Urine Color YELLOW Urine Turbidity CLEAR Urine pH 7.0 Urine Specific [place] 1.012 Urine Protein TRACE mg/dL Urine Glucose (UA) NEG mg/dL Urine Ketones NEG mg/dL Urine Occult Blood SMALL Urine Nitrite NEG Urine Bilirubin NEG Urine Urobilinogen LESS THAN 2.0 MG/DL Urine Leukocyte Esterase NEG Urine RBC 12 /hpf Urine Squamous Epithelial Cells <1 /hpf Urine Opiates Screen NEG Urine Barbiturates Screen NEG Urine Amphetamines Screen NEG Urine Benzodiazepines Screen NEG Urine Cocaine Screen NEG Urine Cannabinoids Screen NEG MDM Medical Decision Making Medical Screen Exam Complete: Yes Emergency Medical Condition: Yes Medical Record Reviewed: Yes Interpretation(s) Twelve-lead EKG was reviewed by me. Normal sinus rhythm, normal axis, nonspecific ST-T wave changes. Heart rate of 70 bpm. Differential Diagnosis CVA Narrative Course 12:46 PM patient initially was worked up as a stroke alert. CT scan was was negative for any bleed as per the radiologist. I discussed the case with Dr. Mahoney who is on-call for neurology. As per him patient is not a TPA candidate given her age, symptoms beyond 3 hours and no severe dysarthria or dysphagia with a nice stroke score of 2. Patient currently is not in A. fib and hence no blood thinners is being started. She will get full strength aspirin and will be admitted. Awaiting for the hospitalist to call back. Critical Care Narrative Aggregate critical care time was 30 minutes. Time to perform other separately billable procedures was not included in the critical care time. My time did not include minutes spent treating any other patients simultaneously or on activities that did not directly contribute to the patient's treatment. The services I provided to this patient were to treat and/or prevent clinically significant deterioration that could result in: Stroke alert I provided critical care services requiring my management, as noted below: Chart data review, documentation time, medication orders and management, vital sign assessments/reviewing monitor data, ordering and reviewing lab tests, ordering and interpreting/reviewing x-rays and diagnostic studies, care of the patient and discussion of the patient with the admitting physicians. Procedures EKG Prior to Arrival: No Physician Communication Physician Communication Dr. Mahoney Diagnosis Primary Impression: Stroke Qualified Codes: I63.9 - Cerebral infarction, unspecified Additional Impression: Dysarthria Admitting Information Admitting Physician Requests: Geo Hernandes MD Dec 30, 2016 11:49
[2016-12-30 12:01] LABS: AUTOMATED NEUTROPHIL # 10.1 TH/MM3 (1.8-7.7); BASOPHIL # 0.1 TH/MM3 (0-0.2); BASOPHIL % 0.8 % (0.0-2.0); EOSINOPHIL # 0.4 TH/MM3 (0-0.4); EOSINOPHIL % 2.9 % (0.0-4.0); LYMPH % 9.7 % (9.0-44.0); LYMPHOCYTE # 1.3 TH/MM3 (1.0-4.8); MEAN CELL VOLUME 95.7 FL (80.0-100.0); MEAN CORPUSCULAR HEMOGLOBIN 31.4 PG (27.0-34.0); MEAN CORPUSCULAR HGB CONC 32.8 % (32.0-36.0); MONO % 10.3 % (0.0-8.0); NEUT % 76.3 % (16.0-70.0); PLATELET COUNT 268 TH/MM3 (150-450); RED BLOOD COUNT 3.87 MIL/MM3 (4.00-5.30); RED CELL DISTRIBUTION WIDTH 16.6 % (11.6-17.2); WHITE BLOOD COUNT 13.3 TH/MM3 (4.0-11.0)
--- NOTE | 2016-12-30 12:03 | RADRPT ---
EXAM DATE/TIME: 12/30/2016 11:50 [facility] COMPARISON: No previous studies available for comparison. INDICATIONS : Stroke alert, slurred speech, for 3 hours. RADIATION DOSE: 31.16 CTDIvol (mGy) This report was called by Teresita to Brandi at 12: 00 MEDICAL HISTORY : Hypertension. Arthritis. SURGICAL HISTORY : None. ENCOUNTER: Initial ACUITY: 1 day PAIN SCALE: Non-responsive LOCATION: cranial TECHNIQUE: Multiple contiguous axial images were obtained of the head. Using automated exposure control and adj ustment of the mA and/or kV according to patient size, radiation dose was kept as low as reasonably a chievable to obtain optimal diagnostic quality images. DICOM format image data is available electro nically for review and comparison. FINDINGS: CEREBRUM: Cerebral atrophy. Scattered areas of low attenuation throughout the white matter The ventricles are n ormal for age. No evidence of midline shift, mass lesion, hemorrhage or acute infarction. No extra- axial fluid collections are seen. POSTERIOR FOSSA: The cerebellum and brainstem are intact. The 4th ventricle is midline. The cerebellopontine angle i s unremarkable. EXTRACRANIAL: The visualized portion of the orbits is intact. SKULL: The calvaria is intact. No evidence of skull fracture. 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 No acute intracranial abnormality. Richard Lo MD on December 30, 2016 at 11:58 Board Certified Radiologist. This report was verified electronically.
[2016-12-30 12:04] LABS: I-STAT POTASSIUM 4.6 MMOL/L (3.5-4.9); I-STAT SODIUM 140 MMOL/L (138-146)
[2016-12-30 12:06] LABS: HEMO FLAGS AUTO DIFF
[2016-12-30 12:16] LABS: APTT (PATIENT) 27.8 SEC (24.3-30.1); INTERNATIONAL NORMALIZED RATIO 1.1 RATIO; PROTHROMBIN TIME - PATIENT 11.7 SEC (9.8-11.6)
[2016-12-30 12:26] LABS: BETA HCG QUANT LESS THAN 1 MIU/ML (0-5)
[2016-12-30 12:26] LABS: BLOOD, URINE SMALL (NEG); GLUCOSE,URINE NEG (NEG); KETONE, URINE NEG (NEG); NITRITE,URINE NEG (NEG); SQUAMOUS EPITHELIAL CELL URINE <1 /hpf (0-5); URINE COLOR YELLOW (YELLW/STRAW)
[2016-12-30 12:33] LABS: CREATINE KINASE 45 U/L (26-192)
[2016-12-30] MEDS ORDERED: PROP60TA PO (12:39)
[2016-12-30] MEDS ORDERED: CALC200S NASAL (12:39)
[2016-12-30] MEDS ORDERED: TYLE325T PO (12:39)
[2016-12-30] MEDS ORDERED: MIRA3350 PO (12:39)
[2016-12-30] MEDS ORDERED: TRAM50TA PO (12:39)
[2016-12-30 12:44] LABS: SCAN/DIFF AUTO DIFF CONFIRMED
[2016-12-30] MEDS ORDERED: SODIUM CHLOR 0.9% 250 ML INJ 250 ML IV ONE (13:00)
[2016-12-30] MEDS ORDERED: ACETAMINOPHEN 325 MG TAB PO PRN ×2 (13:15)
[2016-12-30] MEDS ORDERED: SODIUM CHLORIDE 0.9% FLUSH 10 ML FLUSH IV FLUSH PRN (13:15)
[2016-12-30] MEDS ORDERED: NALOXONE HCL 0.4 MG/ML AMP IV PUSH PRN (13:15)
[2016-12-30] MEDS ORDERED: ONDANSETRON HCL 4 MG/2 ML VIAL IVP PRN (13:15)
--- NOTE | 2016-12-30 13:46 | RADRPT ---
EXAM DATE/TIME: 12/30/2016 13:27 [facility] COMPARISON: CHEST SINGLE AP, October 17, 2016, 10:58. INDICATIONS : Stroke Alert. MEDICAL HISTORY : None. SURGICAL HISTORY : None. 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 No confluent infiltrate or effu roxi. Heart size is upper limits of normal. Atherosclerotic calcification of the thoracic aorta. Dext roscoliosis of the thoracolumbar spine with associated degenerative changes. Probable posterior fixat ion of the cervical spine. CONCLUSION: 1. 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 2. No confluent infiltrate. Benito Mcallister MD on December 30, 2016 at 13:36 Board Certified Radiologist. This report was verified electronically.
[2016-12-30] MEDS ORDERED: ASPIRIN EC 81 MG TABEC PO SCH (15:45)
--- NOTE | 2016-12-30 15:45 | HHI.HP ---
[facility] Service [facility] Primary Care Physician Robe Jacob MD Admission Diagnosis acute stroke Diagnoses: Chief Complaint: Difficulty with speech Travel History International Travel<30 Days: No Contact w/Intl Traveler <30 Da: No Traveled to Known Affected Are: No History of Present Illness The patient is an 89-year-old female who came to the emergency room with a history of difficulty speaking this morning at the rehabilitation facility. The patient has been in the rehabilitation facility for recent hip replacement surgery. She was last seen normal at 8:30 in the morning by the staff. Sometime soon after that the patient started having difficulty speaking and she used her call abarca to get the staff's attention. EMS was called. They noticed expressive aphasia on the patient without any unilateral deficit. Vital signs have been stable. Patient is not on any blood thinners as per the paramedics. She was awake and anxious in the emergency department. She was confused and did not know why she was here. She said that her left leg was broken and it was casted and that is why she is here. She indicated that she would like to leave the hospital soon. She said that her would be visiting her from [facility]. She did not indicate any pain at this time. She said she did not have much of an appetite. Discussed with nursing. Review of Systems ROS Limitations: Clinical Condition, Altered Mental Status, Poor Historian Except as stated in HPI: all other systems reviewed are Neg Past Family Social History Past Medical History Dementia Arthritis/chronic neck and back pain Hypothyroidism Hypertension Past Surgical History Hip fracture s/p repair C-spine surgeries Cataract surgery Allergies: Coded Allergies: Sulfa (Sulfonamide Antibiotics) (Verified Allergy, Severe, Rash, 12/30/16) Active Ordered Medications Current Medications Medications (Trade) Dose Ordered Sig/Kamar Route Start Time Stop Time Status Last Admin (Synthroid) 75 mcg DAILY@0600 PO 12/31/16 06:00 (Miralax) 17 gm DAILY PO 12/31/16 09:00 (Timoptic 0.5% Opth Soln) 1 drop DAILY EACH EYE 12/31/16 09:00 (Xalatan 0.005% Opth Soln) 1 drop HS EACH EYE 12/31/16 21:00 Sodium Chloride 1,000 ml @ 75 mls/hr [id number] IV 12/30/16 15:00 (NS Flush) 2 ml UNSCH PRN IV FLUSH 12/30/16 13:15 (NS Flush) 2 ml BID IV FLUSH 12/30/16 21:00 (Tylenol) 650 mg Q4H PRN PO 12/30/16 13:15 (Zofran Inj) 4 mg Q6H PRN IVP 12/30/16 13:15 (Lovenox Inj) 30 mg Q24H SQ 12/30/16 16:00 (Tylenol) 650 mg Q6H PRN PO 12/30/16 13:15 ([place] 5-325 Mg) 1 tab Q4H PRN PO 12/30/16 13:15 (Narcan Inj) 0.4 mg UNSCH PRN IV PUSH 12/30/16 13:15 (Mila-Colace) 1 tab BID PO 12/30/16 21:00 Family History Unable to obtain Social History Former tobacco use Physical Exam Vital Signs Vital Signs Date Time Temp Pulse Resp B/P (MAP) Pulse Ox O2 Delivery O2 Flow Rate FiO2 12/30/16 14:01 74 18 161/70 (100) 96 Room Air 12/30/16 12:29 71 161/74 (103) 12/30/16 12:25 96 Room Air 12/30/16 12:25 66 174/74 (107) 12/30/16 12:20 75 18 174/74 (107) 96 Room Air 12/30/16 11:41 165/94 (117) Physical Exam GENERAL: Awake, alert, elderly, frail. SKIN: Focused skin assessment warm/dry. HEAD: Atraumatic. Normocephalic. EYES: Pupils equal and round. No scleral icterus. No injection or drainage. ENT: No nasal bleeding or discharge. Mucous membranes pink and moist. NECK: Trachea midline. No JVD. CARDIOVASCULAR: Regular rate and rhythm. No murmur appreciated. RESPIRATORY: No accessory muscle use. Clear to auscultation. Breath sounds equal bilaterally. GASTROINTESTINAL: Abdomen soft, non-tender, nondistended. Hepatic and splenic margins not palpable. MUSCULOSKELETAL: No obvious deformities. No clubbing. No cyanosis. No edema. NEUROLOGICAL: Awake and alert. Confused. PSYCHIATRIC: Anxious. Laboratory Laboratory Tests Test 12/30/16 11:50 12/30/16 12:11 White Blood Count 13.3 Red Blood Count 3.87 Hemoglobin 12.1 Bedside Hemoglobin 13.3 Hematocrit 37.0 Bedside Hematocrit 39.0 Mean Corpuscular Volume 95.7 Mean Corpuscular Hemoglobin 31.4 Mean Corpuscular Hemoglobin Concent 32.8 Red Cell Distribution Width 16.6 Platelet Count 268 Mean Platelet Volume 10.1 Neutrophils (%) (Auto) 76.3 Lymphocytes (%) (Auto) 9.7 Monocytes (%) (Auto) 10.3 Eosinophils (%) (Auto) 2.9 Basophils (%) (Auto) 0.8 Neutrophils # (Auto) 10.1 Lymphocytes # (Auto) 1.3 Monocytes # (Auto) 1.4 Eosinophils # (Auto) 0.4 Basophils # (Auto) 0.1 CBC Comment AUTO DIFF Differential Comment AUTO DIFF CONFIRMED Prothrombin Time 11.7 Prothromb Time International Ratio 1.1 Activated Partial Thromboplast Time 27.8 Fibrinogen 392 Bedside Sodium 140 Bedside Potassium 4.6 Bedside Chloride 100 Bedside Blood Urea Nitrogen 24 Bedside Creatinine 1.1 Bedside Glucose 107 Total Creatine Kinase 45 Troponin I LESS THAN 0.02 Human Chorionic Gonadotropin, Quant LESS THAN 1 Urine Color YELLOW Urine Turbidity CLEAR Urine pH 7.0 Urine Specific [place] 1.012 Urine Protein TRACE Urine Glucose (UA) NEG Urine Ketones NEG Urine Occult Blood SMALL Urine Nitrite NEG Urine Bilirubin NEG Urine Urobilinogen LESS THAN 2.0 Urine Leukocyte Esterase NEG Urine RBC 12 Urine Squamous Epithelial Cells <1 Urine Opiates Screen NEG Urine Barbiturates Screen NEG Urine Amphetamines Screen NEG Urine Benzodiazepines Screen NEG Urine Cocaine Screen NEG Urine Cannabinoids Screen NEG Result Diagram: 12/30/16 1150 Imaging Last Impressions Head CT 12/30/16 0000 Signed Impressions: Service Date/Time: Friday, December 30, 2016 11:50 - CONCLUSION: 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 No acute intracranial abnormality. Richard Lo MD Chest X-Ray 12/30/16 0000 Signed Impressions: Service Date/Time: Friday, December 30, 2016 13:27 - CONCLUSION: 1. 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 2. No confluent infiltrate. MD Keenan De Leon VTE Risk Assessment Caprini VTE Risk Assessment: Mod/High Risk (score >= 2) Caprini Risk Assessment Model Point Value = 1 Point Value = 2 Point Value = 3 Point Value = 5 Age 41-60 Minor surgery BMI > 25 kg/m2 Swollen legs Varicose veins or History of unexplained or recurrent spontaneous Oral contraceptives or hormone replacement Sepsis (< 1 month) Serious lung disease, including pneumonia (< 1 month) Abnormal pulmonary function Acute myocardial infarction Congestive heart failure (< 1 month) History of inflammatory bowel disease Medical patient at bed rest Age 61-74 Arthroscopic surgery Major open surgery (> 45 min) Laparoscopic surgery (> 45 min) Malignancy Confined to bed (> 72 hours) Immobilizing plaster cast Central venous access Age >= 75 History of VTE Family history of VTE Factor V Leiden Prothrombin [id number] Lupus anticoagulant Anticardiolipin antibodies Elevated serum homocysteine Heparin-induced thrombocytopenia Other congenital or acquired thrombophilia Stroke (< 1 month) Elective arthroplasty Hip, pelvis, or leg fracture Acute spinal cord injury (< 1 month) Prophylaxis Regimen Total Risk Factor Score Risk Level Prophylaxis Regimen 0-1 Low Early ambulation 2 Moderate Order ONE of the following: *Sequential Compression Device (SCD) *Heparin 5000 units SQ BID 3-4 Higher Order ONE of the following medications: *Heparin 5000 units SQ TID *Enoxaparin/Lovenox 40 mg SQ daily (WT < 150 kg, CrCl > 30 mL/min) *Enoxaparin/Lovenox 30 mg SQ daily (WT < 150 kg, CrCl > 10-29 mL/min) *Enoxaparin/Lovenox 30 mg SQ BID (WT < 150 kg, CrCl > 30 mL/min) AND/OR *Sequential Compression Device (SCD) 5 or more Highest Order ONE of the following medications: *Heparin 5000 units SQ TID (Preferred with Epidurals) *Enoxaparin/Lovenox 40 mg SQ daily (WT < 150 kg, CrCl > 30 mL/min) *Enoxaparin/Lovenox 30 mg SQ daily (WT < 150 kg, CrCl > 10-29 mL/min) *Enoxaparin/Lovenox 30 mg SQ BID (WT < 150 kg, CrCl > 30 mL/min) AND *Sequential Compression Device (SCD) Assessment and Plan Assessment and Plan Aphasia/ Dementia/ Agitation The patient was brought in from a retirement facility with an inability to speak. Neurology was contacted and TPA was not administered. 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 EKG with sinus rhythm. Symptoms seem to have resolved, however, the patient has dementia and is currently agitated. - Aspirin 325 mg by mouth 1 and 81 mg daily after. - Neurology evaluation pending. - check lipid profile and HgbA1c. - Monitor on telemetry. - Restraints for agitation. - Bedrest, permissive hypertension, nothing by mouth until speech eval. - PT/ OT. - consider starting dementia meds. Defer to neurology. HTN Blood pressure has been elevated. - permissive HTN for now. Resume home meds when OK per neurology. Leukocytosis Possibly a stress reaction. UA unremarkable. CXR with chronic interstitial changes. - follow CBC. Renal insufficiency Likely pre-renal. - IVFs and monitor. PPx: Lovenox Discussed Condition With Pt, nurse, Dr. Paz Physician Certification 2 Midnight Certification Type: Admission for Inpatient Services Order for Inpatient Services The services are ordered in accordance with Medicare regulations or non- Medicare payer requirements, as applicable. In the case of services not specified as inpatient-only, they are appropriately provided as inpatient services in accordance with the 2-midnight benchmark. Estimated LOS (days): 2 days is the estimated time the patient will need to remain in the hospital, assuming treatment plan goals are met and no additional complications. Post-Hospital Plan: SNF Jean Alicia DO Dec 30, 2016 15:45
[2016-12-30] MEDS: SODIUM CHLOR 0.9% 1000 ML INJ 1,000 ML IV SCH (15:52)
[2016-12-30] MEDS ORDERED: ASPIRIN 325 MG TAB PO ONE (16:00)
[2016-12-30] MEDS: ENOXAPARIN SODIUM 30 MG/0.3 ML SYRINGE SQ SCH (16:30)
[2016-12-30] MEDS: SODIUM CHLORIDE 0.9% FLUSH 10 ML FLUSH IV FLUSH SCH (20:10)
--- NOTE | 2016-12-30 20:57 | MB ---
cc: ORLIN SIN M.D. DATE OF CONSULTATION 12/30/2016 HISTORY She is an 89-year-old woman seen in neurological consultation. She came in and a stroke alert was called. I spoke to Dr. Paz when the patient was in the emergency room. She has been in a rehab facility after hip fracture and apparently developed speech / language difficulty around 08:30. When I spoke to Dr. Paz, it was just about over 3 hours after the time she was last seen and considering the entire picture we did not feel she was a candidate for tPA in one reason because of the time of over 3-hour after the possible onset of symptoms. Anyhow the patient also seemed to have a low NIHSS, documented as 2 initially. She seemed to improve to a certain extent in the emergency room. Never had any obvious motor deficits. I saw her, she was still in the emergency room earlier today. She has had some history of atrial fibrillation but details not available, apparently not in a in the emergency room and not taking any blood thinners. MEDICATIONS Listed as: 1. Tramadol. 2. MiraLax. 3. Calcitonin. 4. Propranolol. 5. Levothyroxine. 6. Timolol eye drops. 7. Travatan eye drops. 8. Meloxicam. 9. Methotrexate. PHYSICAL EXAMINATION GENERAL: Exam shows the patient to be awake, partially oriented. She knew her age and thought she was in the [facility] rehab facility but when I oriented her to the name of the place she seemed to agree on this. She followed simple commands, moved all four extremities reasonably well. Intermittently had some difficulty with word-finding but relatively mild. Reflexes were not elicited as she asked me not to do reflexes because of some joint pain. IMAGING The CT brain was negative for acute process. LABORATORY DATA White count 13.3, hemoglobin 12.1, platelets 268. Sodium, potassium, BUN normal. Creatinine 1.1. Glucose 107 and urine toxicology negative. ASSESSMENT Acute onset of neurologic symptoms, aphasia versus dysarthric speech, mostly improved by the time I saw her in the emergency room. Mild confusional state, possibly baseline. Status post recent hip fracture. History of atrial fibrillation but she was in sinus rhythm in the emergency room, EKG was reviewed. Aspirin is started. Will request an MRI brain, echocardiogram, lipid profile. Monitor the neurological course, possible EEG. Carotid ultrasound. I will follow the neurological course. Thank you for asking us to assist in her care. MD ONEIL Valenzuela/KK /8:08 PM /8:47 PM
[2016-12-30] MEDS: DOCUSATE SODIUM 50 MG/SENNA 8.6 MG TAB PO SCH (21:55)
[2016-12-30 22:08] LABS: MAGNESIUM 1.9 MG/DL (1.5-2.5)
[2016-12-30 22:09] LABS: HDL CHOLESTEROL 73.9 MG/DL (40.0-60.0)
[2016-12-30] MEDS: ACETAMINOPHEN/HYDROcodone 325 MG/5 MG TAB PO PRN (23:29)
[2016-12-31] VITALS (9 sets, daily range): BP systolic 140–190; BP diastolic 74–91; PULSE 72–93; RESP 18; TEMP 97.3–98; O2SAT 92–96
[2016-12-31] MEDS: LEVOTHYROXINE SODIUM 75 MCG TAB PO SCH (06:33)
[2016-12-31] MEDS: SODIUM CHLOR 0.9% 1000 ML INJ 1,000 ML IV SCH (06:33)
[2016-12-31 07:20] LABS: AUTOMATED NEUTROPHIL # 7.3 TH/MM3 (1.8-7.7); BASOPHIL # 0.1 TH/MM3 (0-0.2); BASOPHIL % 0.6 % (0.0-2.0); EOSINOPHIL # 0.4 TH/MM3 (0-0.4); EOSINOPHIL % 4.1 % (0.0-4.0); HEMATOCRIT 35.5 % (35.0-46.0); HEMO FLAGS DIFF FINAL; LYMPH % 12.2 % (9.0-44.0); LYMPHOCYTE # 1.2 TH/MM3 (1.0-4.8); MEAN CELL VOLUME 95.1 FL (80.0-100.0); MEAN CORPUSCULAR HEMOGLOBIN 31.2 PG (27.0-34.0); MEAN CORPUSCULAR HGB CONC 32.8 % (32.0-36.0); MONO % 7.4 % (0.0-8.0); NEUT % 75.7 % (16.0-70.0); PLATELET COUNT 268 TH/MM3 (150-450); RED BLOOD COUNT 3.74 MIL/MM3 (4.00-5.30); RED CELL DISTRIBUTION WIDTH 16.3 % (11.6-17.2); WHITE BLOOD COUNT 9.6 TH/MM3 (4.0-11.0)
[2016-12-31 07:50] LABS: ANION GAP 10 MEQ/L (5-15); AST (GOT) 25 U/L (15-37); BICARBONATE 24.3 MEQ/L (21.0-32.0); BLOOD UREA NITROGEN 17 MG/DL (7-18); CHLORIDE 104 MEQ/L (98-107); GLOMERULAR FILTRATION RATE 75 ML/MIN (>89); POTASSIUM 3.8 MEQ/L (3.5-5.1); SODIUM (NA) 138 MEQ/L (136-145)
[2016-12-31 07:51] LABS: ALT (GPT) 26 U/L (10-53)
[2016-12-31 07:54] LABS: ALKALINE PHOSPHATASE 88 U/L (45-117); TOTAL BILIRUBIN ADULT 0.7 MG/DL (0.2-1.0)
[2016-12-31] MEDS: TIMOLOL MALEATE 0.5% OPHT SOLN 5 ML BTL EACH EYE SCH (08:13)
[2016-12-31] MEDS: SODIUM CHLORIDE 0.9% FLUSH 10 ML FLUSH IV FLUSH SCH ×2 (08:13→20:16)
[2016-12-31] MEDS: POLYETHYLENE GLYCOL 17 GM PKG PO SCH (08:15)
[2016-12-31] MEDS: ASPIRIN EC 81 MG TABEC PO SCH (08:15)
[2016-12-31] MEDS: DOCUSATE SODIUM 50 MG/SENNA 8.6 MG TAB PO SCH ×2 (08:15→20:16)
[2016-12-31] MEDS: CALCITONIN SALM 200 UNIT/SPRAY 3.7 ML BTLN NASAL SCH (08:15)
[2016-12-31] MEDS ORDERED: LORazepam 2 MG/ML VIAL IV ONE (10:00)
--- NOTE | 2016-12-31 11:34 | HHI.PR ---
Review/Management Daily Summary alert and confused this am trying to get oob, restraints more speech and no overt aphasia plan per yesterday oob with PT Subjective Subjective Comments No acute neuro events reported No headache Active Medications Current Medications Medications (Trade) Dose Ordered Sig/Kamar Route Start Time Stop Time Status Last Admin (Synthroid) 75 mcg DAILY@0600 PO 12/31/16 06:00 12/31/16 06:33 (Miralax) 17 gm DAILY PO 12/31/16 09:00 12/31/16 08:15 (Timoptic 0.5% Opth Soln) 1 drop DAILY EACH EYE 12/31/16 09:00 12/31/16 08:13 (Xalatan 0.005% Opth Soln) 1 drop HS EACH EYE 12/31/16 21:00 Sodium Chloride 1,000 ml @ 75 mls/hr [id number] IV 12/30/16 15:00 12/31/16 06:33 (NS Flush) 2 ml UNSCH PRN IV FLUSH 12/30/16 13:15 (NS Flush) 2 ml BID IV FLUSH 12/30/16 21:00 12/30/16 20:10 (Tylenol) 650 mg Q4H PRN PO 12/30/16 13:15 (Zofran Inj) 4 mg Q6H PRN IVP 12/30/16 13:15 (Lovenox Inj) 30 mg Q24H SQ 12/30/16 16:00 12/30/16 16:30 (Tylenol) 650 mg Q6H PRN PO 12/30/16 13:15 ([place] 5-325 Mg) 1 tab Q4H PRN PO 12/30/16 13:15 12/30/16 23:29 (Narcan Inj) 0.4 mg UNSCH PRN IV PUSH 12/30/16 13:15 (Mila-Colace) 1 tab BID PO 12/30/16 21:00 12/31/16 08:15 (Ecotrin Ec) 81 mg DAILY PO 12/31/16 09:00 12/31/16 08:15 Allergies Allergies Coded Allergies Sulfa (Sulfonamide Antibiotics) (Verified Allergy, Severe, Rash, 12/30/16) Exam I&O / VS Vital Signs Date Time Temp Pulse Resp B/P (MAP) Pulse Ox O2 Delivery O2 Flow Rate FiO2 12/31/16 08:18 97.6 74 18 190/76 (114) 94 12/31/16 08:02 80 12/31/16 05:20 97.3 79 18 172/87 (115) 94 12/31/16 03:23 94 12/31/16 00:30 97.5 73 18 188/77 (114) 94 12/30/16 20:30 97.3 72 18 155/67 (96) 93 12/30/16 20:16 65 12/30/16 16:25 98.0 76 18 191/80 (117) 96 12/30/16 16:17 12/30/16 15:54 75 166/83 (110) 12/30/16 14:01 74 18 161/70 (100) 96 Room Air 12/30/16 12:29 71 161/74 (103) 12/30/16 12:25 96 Room Air 12/30/16 12:25 66 174/74 (107) 12/30/16 12:20 75 18 174/74 (107) 96 Room Air 12/30/16 11:41 165/94 (117) Objective Radiology Results Last [address] 12/30/16 0000 Signed Impressions: Service Date/Time: Friday, December 30, 2016 11:50 - CONCLUSION: 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 No acute intracranial abnormality. Richard Lo MD Chest X-Ray 12/30/16 0000 Signed Impressions: Service Date/Time: Friday, December 30, 2016 13:27 - CONCLUSION: 1. 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 2. No confluent infiltrate. Benito Mcallister MD Micro and Labs Laboratory Tests Test 12/30/16 11:50 12/30/16 12:11 12/31/16 06:12 White Blood Count 13.3 9.6 Red Blood Count 3.87 3.74 Hemoglobin 12.1 11.7 Bedside Hemoglobin 13.3 Hematocrit 37.0 35.5 Bedside Hematocrit 39.0 Mean Corpuscular Volume 95.7 95.1 Mean Corpuscular Hemoglobin 31.4 31.2 Mean Corpuscular Hemoglobin Concent 32.8 32.8 Red Cell Distribution Width 16.6 16.3 Platelet Count 268 268 Mean Platelet Volume 10.1 9.9 Neutrophils (%) (Auto) 76.3 75.7 Lymphocytes (%) (Auto) 9.7 12.2 Monocytes (%) (Auto) 10.3 7.4 Eosinophils (%) (Auto) 2.9 4.1 Basophils (%) (Auto) 0.8 0.6 Neutrophils # (Auto) 10.1 7.3 Lymphocytes # (Auto) 1.3 1.2 Monocytes # (Auto) 1.4 0.7 Eosinophils # (Auto) 0.4 0.4 Basophils # (Auto) 0.1 0.1 CBC Comment AUTO DIFF DIFF FINAL Differential Comment AUTO DIFF CONFIRMED Prothrombin Time 11.7 Prothromb Time International Ratio 1.1 Activated Partial Thromboplast Time 27.8 Fibrinogen 392 Bedside Sodium 140 Bedside Potassium 4.6 Bedside Chloride 100 Bedside Blood Urea Nitrogen 24 Bedside Creatinine 1.1 Bedside Glucose 107 Phosphorus Level 3.6 Magnesium Level 1.9 Total Creatine Kinase 45 Troponin I LESS THAN 0.02 Triglycerides Level 153 Cholesterol Level 165 LDL Cholesterol 61 HDL Cholesterol 73.9 Cholesterol/HDL Ratio 2.23 Human Chorionic Gonadotropin, Quant LESS THAN 1 Urine Color YELLOW Urine Turbidity CLEAR Urine pH 7.0 Urine Specific [place] 1.012 Urine Protein TRACE Urine Glucose (UA) NEG Urine Ketones NEG Urine Occult Blood SMALL Urine Nitrite NEG Urine Bilirubin NEG Urine Urobilinogen LESS THAN 2.0 Urine Leukocyte Esterase NEG Urine RBC 12 Urine Squamous Epithelial Cells <1 Urine Opiates Screen NEG Urine Barbiturates Screen NEG Urine Amphetamines Screen NEG Urine Benzodiazepines Screen NEG Urine Cocaine Screen NEG Urine Cannabinoids Screen NEG Blood Urea Nitrogen 17 Creatinine 0.73 Random Glucose 91 Total Protein 6.7 Albumin 3.2 Calcium Level 9.4 Alkaline Phosphatase 88 Aspartate Amino Transf (AST/SGOT) 25 Alanine Aminotransferase (ALT/SGPT) 26 Total Bilirubin 0.7 Sodium Level 138 Potassium Level 3.8 Chloride Level 104 Carbon Dioxide Level 24.3 Anion Gap 10 Estimat Glomerular Filtration Rate 75 Tre Mahoney MD Dec 31, 2016 11:34
--- NOTE | 2016-12-31 12:43 | RADRPT ---
EXAM DATE/TIME: 12/31/2016 11:58 [facility] COMPARISON: No previous studies available for comparison. INDICATIONS : Aphasia. MEDICAL HISTORY : Hypertension. SURGICAL HISTORY : Fusion, cervical. hip replacement, cataract ENCOUNTER: Subsequent ACUITY: 2 day PAIN SCORE: 0/10 LOCATION: cranial TECHNIQUE: Multiplanar, multisequence MRI of the brain was performed without contrast. The study is limited due to motion artifact. FINDINGS: CEREBRUM: The ventricles are normal for age. There is bilateral cortical atrophy. No evidence of midline shift, mass lesion, hemorrhage or acute infarction. No extraaxial fluid collections are seen. The pituita ry gland and suprasellar cistern are normal in configuration. WHITE MATTER: No significant signal abnormalities are seen in the white matter. POSTERIOR FOSSA: The cerebellum and brainstem are intact. The 4th ventricle is midline. The cerebellopontine angle is unremarkable. The cerebellar tonsils are normal in position. DIFFUSION IMAGING: No focal areas of restricted diffusion are seen. No evidence of acute infarction. EXTRACRANIAL: The visualized portions of the orbits and paranasal sinuses are unremarkable. There is evidence of ri ght chronic mastoiditis. CONCLUSION: 1. 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 Huseyin Galeano MD on December 31, 2016 at 12:36 Board Certified Radiologist. This report was verified electronically.
--- NOTE | 2016-12-31 13:29 | RADRPT ---
EXAM DATE/TIME: 12/30/2016 22:23 [facility] COMPARISON: No previous studies available for comparison. INDICATIONS : Stroke. MEDICAL HISTORY : Arthritis. Hypertension. Glaucoma. Dementia. Irregular hearbeat. SURGICAL HISTORY : Cataracts. Left hip surgery. Left wrist surgery. ENCOUNTER: Subsequent ACUITY: 1 day PAIN SCORE: Nonresponsive. LOCATION: Bilateral neck PEAK SYSTOLIC VELOCITIES (cm/sec): ICA/CCA RATIO: Right: 0.9 Left: 1.6 ICA: Right: 71 Left: 89 CCA: Right: 76 Left: 56 ECA: Right: 58 Left: 76 VERTEBRAL: Right: 72 antegrade Left: 57 antegrade Elevated flow velocities and ICA/CCA ratios have been found to correlate with increased degrees of vessel stenosis, calculated as percentage of diameter relative to a normal segment of distal ICA/CCA FINDINGS: RIGHT CAROTID: Mild eccentric plaquing. No significant stenosis is visualized. The waveforms are within normal limi ts. LEFT CAROTID: Mild eccentric calcific plaquing. No significant stenosis is visualized. The waveforms are within no rmal limits. VERTEBRAL ARTERIES: Antegrade flow is seen in both vertebral arteries. MISCELLANEOUS: None. CONCLUSION: No evidence of flow-limiting carotid stenosis. Sony Palencia MD on December 31, 2016 at 13:26 Board Certified Radiologist. This report was verified electronically.
[2016-12-31] MEDS: ENOXAPARIN SODIUM 30 MG/0.3 ML SYRINGE SQ SCH (15:52)
[2016-12-31 17:40] LABS: HEMOGLOBIN A1a 0.9 %; HEMOGLOBIN A1b 1.8 %; HEMOGLOBIN Ao 85.5 %; HEMOGLOBIN LA1C 1.8 %; HEMOGLOBIN P3 5.3 %
--- NOTE | 2016-12-31 17:58 | HHI.PR ---
Subjective Remarks The patient was resting comfortably in bed. Nursing was at the bedside, they state that the patient was recently up and about but got tired. Objective Vitals Vital Signs Date Time Temp Pulse Resp B/P (MAP) Pulse Ox O2 Delivery O2 Flow Rate FiO2 12/31/16 15:40 97.9 72 18 140/78 (98) 92 12/31/16 11:59 97.7 81 18 175/80 (111) 96 12/31/16 08:18 97.6 74 18 190/76 (114) 94 12/31/16 08:02 80 12/31/16 05:20 97.3 79 18 172/87 (115) 94 12/31/16 03:23 94 12/31/16 00:30 97.5 73 18 188/77 (114) 94 12/30/16 20:30 97.3 72 18 155/67 (96) 93 12/30/16 20:16 65 I/O 12/30/16 12/30/16 12/30/16 12/31/16 12/31/16 12/31/16 07:00 15:00 23:00 07:00 15:00 23:00 Intake Total 250 ml 1240 ml Output Total 350 ml Balance 250 ml -350 ml 1240 ml Intake Oral 240 ml IV Total 250 ml 1000 ml Output Urine Total 350 ml # Voids 4 2 Result Diagram: 12/31/1612 12/31/16 0612 Imaging Last Impressions Carotid Artery Ultrasound 12/31/16 0000 Signed Impressions: Service Date/Time: Friday, December 30, 2016 22:23 - CONCLUSION: No evidence of flow-limiting carotid stenosis. Sony Palencia MD Brain MRI 12/31/16 0000 Signed Impressions: Service Date/Time: Saturday, December 31, 2016 11:58 - CONCLUSION: 1. 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 No acute intracranial abnormality. Richard Lo MD Chest X-Ray 12/30/16 0000 Signed Impressions: Service Date/Time: Friday, December 30, 2016 13:27 - CONCLUSION: 1. 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 2. No confluent infiltrate. Benito Mcallister MD Objective Remarks GENERAL: Lethargic. SKIN: Focused skin assessment warm/dry. HEAD: Atraumatic. Normocephalic. EYES: Pupils equal and round. No scleral icterus. No injection or drainage. ENT: No nasal bleeding or discharge. Mucous membranes pink and moist. NECK: Trachea midline. No JVD. CARDIOVASCULAR: Regular rate and rhythm. No murmur appreciated. No carotid bruits. RESPIRATORY: No accessory muscle use. Clear to auscultation. Breath sounds equal bilaterally. GASTROINTESTINAL: Abdomen soft, non-tender, nondistended. Hepatic and splenic margins not palpable. MUSCULOSKELETAL: No obvious deformities. No clubbing. No cyanosis. No edema. NEUROLOGICAL: Moves upper and lower extremities. Medications and IVs Current Medications Medications (Trade) Dose Ordered Sig/Kamar Route Start Time Stop Time Status Last Admin (Synthroid) 75 mcg DAILY@0600 PO 12/31/16 06:00 12/31/16 06:33 (Miralax) 17 gm DAILY PO 12/31/16 09:00 12/31/16 08:15 (Timoptic 0.5% Opth Soln) 1 drop DAILY EACH EYE 12/31/16 09:00 12/31/16 08:13 (Xalatan 0.005% Opth Soln) 1 drop HS EACH EYE 12/31/16 21:00 Sodium Chloride 1,000 ml @ 75 mls/hr [id number] IV 12/30/16 15:00 12/31/16 06:33 (NS Flush) 2 ml UNSCH PRN IV FLUSH 12/30/16 13:15 (NS Flush) 2 ml BID IV FLUSH 12/30/16 21:00 12/30/16 20:10 (Tylenol) 650 mg Q4H PRN PO 12/30/16 13:15 (Zofran Inj) 4 mg Q6H PRN IVP 12/30/16 13:15 (Lovenox Inj) 30 mg Q24H SQ 12/30/16 16:00 12/31/16 15:52 (Tylenol) 650 mg Q6H PRN PO 12/30/16 13:15 ([place] 5-325 Mg) 1 tab Q4H PRN PO 12/30/16 13:15 12/30/16 23:29 (Narcan Inj) 0.4 mg UNSCH PRN IV PUSH 12/30/16 13:15 (Mila-Colace) 1 tab BID PO 12/30/16 21:00 12/31/16 08:15 (Ecotrin Ec) 81 mg DAILY PO 12/31/16 09:00 12/31/16 08:15 Non-Formulary Medication 60 mg DAILY PO 12/31/16 18:00 UNV A/P Assessment and Plan Aphasia/ Dementia/ Agitation The [facility] with an inability to speak. Neurology was contacted and TPA was not administered. 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 EKG with sinus rhythm. Symptoms seem to have resolved, however, the patient has dementia and is currently agitated. Neurology consult appreciated. MRI of brain with bilateral cortical atrophy, chronic right mastoiditis. Carotid ultrasound unremarkable. LDL is 61. Status post bedrest and permissive hypertension. - Aspirin 325 mg by mouth 1 and 81 mg daily after. - Neurology following. - check HgbA1c. - Monitor on telemetry. - echo pending. - Restraints for agitation. - PT/ OT. - d/c IVFs. - consider starting dementia meds. Defer to neurology. HTN Blood pressure has been elevated. - Resume home meds. Add amlodipine if needed. - Vasotec as needed. Leukocytosis Possibly a stress reaction. UA unremarkable. CXR with chronic interstitial changes. - follow CBC. Resolved. Renal insufficiency Likely pre-renal. - IVFs and monitor. Resolved. PPx: Lovenox Discharge Planning Awaiting clinical improvement. Anticipate DC to SNF in 1-2 days. Jean Alicia DO Dec 31, 2016 17:58
[2016-12-31] MEDS ORDERED: NON-FORMULARY DRUG (Propranolol 60 MG) PO SCH (18:00)
--- NOTE | 2016-12-31 18:49 | EKG ---
Date Performed: 12/30/2016 Time Performed: 11:59:04 PTAGE: 89 years EKG: Sinus rhythm NORMAL ECG INTERPRETATION BASED ON A DEFAULT AGE OF 40 YEARS Compared to prior tracing no significan t change PREVIOUS TRACING : 10/17/2016 11.18 DOCTOR: Marisol Nowak Interpretating Date/Time 12/31/2016 18:48:54
--- NOTE | 2016-12-31 19:49 | ECHRPT ---
Indication: Stroke CONCLUSIONS The left ventricular systolic function is normal with an estimated ejection fraction 65%. Wall thickness is normal. Normal left ventricular size. The left atrial size is mildly dilated. Trace mitral valve regurgitation. Aortic valve sclerosis is present (calcified noncoronary cusp There is moderate tricuspid valve regurgitation. The estimated pulmonary arterial pressure is 48.9 mmHg. BP: 172 / 87 HR: 79 Rhythm: Sinus MEASUREMENTS (Male / Female) Normal Values Technical Quality:Good 2D ECHO LV Diastolic Diameter PLAX 3.7 cm 4.2 - 5.9 / 3.9 - 5.3 cm LV Systolic Diameter PLAX 2.8 cm IVS Diastolic Thickness 0.8 cm 0.6 - 1.0 / 0.6 - 0.9 cm LVPW Diastolic Thickness 0.8 cm 0.6 - 1.0 / 0.6 - 0.9 cm LV Relative Wall Thickness 0.4 LVOT Diameter 1.8 cm M-MODE Aortic Root Diameter MM 2.6 cm LA Systolic Diameter MM 3.9 cm LA Ao Ratio MM 1.5 AV Cusp Separation MM 1.6 cm DOPPLER AV Peak Velocity 150.0 cm/s AV Peak Gradient 9.0 mmHg LVOT Peak Velocity 127.0 cm/s LVOT Peak Gradient 6.5 mmHg AV Area Cont Eq pk 2.2 cm MR Peak Velocity 473.0 cm/s MR Peak Gradient 89.5 mmHg Mitral E Point Velocity 86.9 cm/s Mitral A Point Velocity 131.0 cm/s Mitral E to A Ratio 0.7 LV E' Lateral Velocity 6.4 cm/s Mitral E to LV E' Lateral Ratio 13.5 LV E' Septal Velocity 6.0 cm/s Mitral E to LV E' Septal Ratio 14.4 TR Peak Velocity 312.0 cm/s TR Peak Gradient 38.9 mmHg Right Atrial Pressure 10.0 mmHg Pulmonary Artery Systolic Pressu 48.9 mmHg Right Ventricular Systolic Press 48.9 mmHg PV Peak Velocity 114.0 cm/s PV Peak Gradient 5.2 mmHg FINDINGS LEFT VENTRICLE The left ventricular systolic function is normal with an estimated ejection fraction 65%. Wall thickness is normal. Normal left ventricular size. RIGHT VENTRICLE Normal right ventricular size and systolic function. LEFT ATRIUM The left atrial size is mildly dilated. RIGHT ATRIUM The right atrial size is normal. ATRIAL SEPTUM Normal atrial septal thickness without atrial level shunting by limited color doppler interrogation. AORTA The aortic root and proximal ascending aorta are normal in size on limited imaging. MITRAL VALVE Trace mitral valve regurgitation. AORTIC VALVE Aortic valve sclerosis is present (calcified noncoronary cusp TRICUSPID VALVE There is moderate tricuspid valve regurgitation. The estimated pulmonary arterial pressure is 48.9 mmHg. PULMONARY VALVE No pulmonary valve regurgitation or stenosis. VESSELS The inferior vena cava is normal in size. PERICARDIUM No pericardial effusion. Christophe Palomo MD (Electronically Signed) Final Date:31 December 2016 19:48
[2016-12-31] MEDS: ENALAPRILAT 2.5 MG/2 ML VIAL IV PUSH PRN (20:15)
[2016-12-31] MEDS: LATANOPROST 0.005% OPHT SOLN 2.5 ML BTL EACH EYE SCH (20:16)
[2017-01-01] VITALS (8 sets, daily range): BP systolic 131–182; BP diastolic 77–87; PULSE 70–85; RESP 17–18; TEMP 97.5–98; O2SAT 94–97
[2017-01-01] MEDS: LEVOTHYROXINE SODIUM 75 MCG TAB PO SCH (05:47)
[2017-01-01] MEDS: CALCITONIN SALM 200 UNIT/SPRAY 3.7 ML BTLN NASAL SCH (09:00)
[2017-01-01] MEDS: TIMOLOL MALEATE 0.5% OPHT SOLN 5 ML BTL EACH EYE SCH (09:00)
[2017-01-01] MEDS: DOCUSATE SODIUM 50 MG/SENNA 8.6 MG TAB PO SCH ×2 (10:31→20:45)
[2017-01-01] MEDS: ASPIRIN EC 81 MG TABEC PO SCH (10:31)
[2017-01-01] MEDS: POLYETHYLENE GLYCOL 17 GM PKG PO SCH (10:31)
[2017-01-01] MEDS: PROPRANOLOL HCL 20 MG TAB PO SCH (10:32)
--- NOTE | 2017-01-01 11:53 | HHI.PR ---
Subjective Remarks The patient was resting comfortably in bed. She was calm and cooperative. Still in restraints. She had no acute complaints. Discussed with case management. Objective Vitals Vital Signs Date Time Temp Pulse Resp B/P (MAP) Pulse Ox O2 Delivery O2 Flow Rate FiO2 01/01/17 08:11 97.5 82 18 182/79 (113) 94 01/01/17 07:34 98.0 81 18 174/80 (111) 94 01/01/17 06:30 154/80 (104) 01/01/17 01:39 98.0 77 18 179/81 (113) 97 12/31/16 22:38 75 143/74 (97) 95 12/31/16 20:00 98.0 93 18 180/91 (120) 93 12/31/16 15:40 97.9 72 18 140/78 (98) 92 12/31/16 11:59 97.7 81 18 175/80 (111) 96 I/O 12/31/16 12/31/16 12/31/16 01/01/17 01/01/17 01/01/17 07:00 15:00 23:00 07:00 15:00 23:00 Intake Total 1240 ml 1000 ml Balance 1240 ml 1000 ml Intake Oral 240 ml IV Total 1000 ml 1000 ml # Voids 4 3 1 1 # Bowel Movements 1 Result Diagram: 12/31/1612 12/31/16 0612 Imaging Last Impressions Carotid Artery Ultrasound 12/31/16 0000 Signed Impressions: Service Date/Time: Friday, December 30, 2016 22:23 - CONCLUSION: No evidence of flow-limiting carotid stenosis. Sony Palencia MD Brain MRI 12/31/16 0000 Signed Impressions: Service Date/Time: Saturday, December 31, 2016 11:58 - CONCLUSION: 1. 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 No acute intracranial abnormality. Richard Lo MD Chest X-Ray 12/30/16 0000 Signed Impressions: Service Date/Time: Friday, December 30, 2016 13:27 - CONCLUSION: 1. 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 2. No confluent infiltrate. Benito Mcallister MD Objective Remarks GENERAL: Resting comfortably. SKIN: Focused skin assessment warm/dry. HEAD: Atraumatic. Normocephalic. EYES: Pupils equal and round. No scleral icterus. No injection or drainage. ENT: No nasal bleeding or discharge. Mucous membranes pink and moist. NECK: Trachea midline. No JVD. CARDIOVASCULAR: Regular rate and rhythm. No murmur appreciated. No carotid bruits. RESPIRATORY: No accessory muscle use. Clear to auscultation. Breath sounds equal bilaterally. GASTROINTESTINAL: Abdomen soft, non-tender, nondistended. Hepatic and splenic margins not palpable. MUSCULOSKELETAL: No obvious deformities. No clubbing. No cyanosis. No edema. NEUROLOGICAL: Moves upper and lower extremities. Motor strength appears symmetrical in all extremities. PSYCH: Calm. Medications and IVs Current Medications Medications (Trade) Dose Ordered Sig/Kamar Route Start Time Stop Time Status Last Admin (Synthroid) 75 mcg DAILY@0600 PO 12/31/16 06:00 01/01/17 05:47 (Miralax) 17 gm DAILY PO 12/31/16 09:00 01/01/17 10:31 (Timoptic 0.5% Opth Soln) 1 drop DAILY EACH EYE 12/31/16 09:00 12/31/16 08:13 (Xalatan 0.005% Opth Soln) 1 drop HS EACH EYE 12/31/16 21:00 12/31/16 20:16 (NS Flush) 2 ml UNSCH PRN IV FLUSH 12/30/16 13:15 (NS Flush) 2 ml BID IV FLUSH 12/30/16 21:00 12/31/16 20:16 (Tylenol) 650 mg Q4H PRN PO 12/30/16 13:15 (Zofran Inj) 4 mg Q6H PRN IVP 12/30/16 13:15 (Lovenox Inj) 30 mg Q24H SQ 12/30/16 16:00 12/31/16 15:52 (Tylenol) 650 mg Q6H PRN PO 12/30/16 13:15 ([place] 5-325 Mg) 1 tab Q4H PRN PO 12/30/16 13:15 12/30/16 23:29 (Narcan Inj) 0.4 mg UNSCH PRN IV PUSH 12/30/16 13:15 (Mila-Colace) 1 tab BID PO 12/30/16 21:00 01/01/17 10:31 (Ecotrin Ec) 81 mg DAILY PO 12/31/16 09:00 01/01/17 10:31 (Vasotec Inj) 2.5 mg Q6H PRN IV PUSH 12/31/16 18:00 12/31/16 20:15 (Inderal) 60 mg DAILY PO 01/01/17 09:00 01/01/17 10:32 (Norvasc) 5 mg DAILY PO 01/01/17 11:15 A/P Assessment and Plan Aphasia/ Dementia/ Agitation The patient was brought in from a long-term facility with an inability to speak. Neurology was contacted and TPA was not administered. 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 EKG with sinus rhythm. Symptoms seem to have resolved, however, the patient has dementia and is currently agitated. Neurology consult appreciated. MRI of brain with bilateral cortical atrophy, chronic right mastoiditis. Carotid ultrasound unremarkable. LDL is 61. Status post bedrest and permissive hypertension. a1c 5.6%. Echo with normal EF. - Aspirin 325 mg by mouth 1 and 81 mg daily after. - Neurology following. - Monitor on telemetry. - d/c restraints and focus on frequent orientation. - PT/ OT/ ST. - consider starting dementia meds. Defer to neurology. HTN Blood pressure has been elevated. - Resume home meds. Add amlodipine 5 mg daily. - Vasotec as needed. Leukocytosis Possibly a stress reaction. UA unremarkable. CXR with chronic interstitial changes. - follow CBC. Resolved. Renal insufficiency Likely pre-renal. - IVFs and monitor. Resolved. PPx: Lovenox Discharge Planning D/c to SNF in AM if off restraints 24 hours Jean Alicia DO Jan 01, 2017 11:53
[2017-01-01] MEDS: ENOXAPARIN SODIUM 30 MG/0.3 ML SYRINGE SQ SCH (16:00)
[2017-01-01] MEDS: SODIUM CHLORIDE 0.9% FLUSH 10 ML FLUSH IV FLUSH SCH (20:45)
[2017-01-01] MEDS: LATANOPROST 0.005% OPHT SOLN 2.5 ML BTL EACH EYE SCH (20:45)
[2017-01-01] MEDS ORDERED: diphenhydrAMINE HCL 25 MG CAP PO ONE (21:00)
[2017-01-02] VITALS (10 sets, daily range): BP systolic 107–192; BP diastolic 57–108; PULSE 67–104; RESP 18–20; TEMP 98.1–98.8; O2SAT 94–97
[2017-01-02] MEDS: ENALAPRILAT 2.5 MG/2 ML VIAL IV PUSH PRN (00:10)
[2017-01-02] MEDS ORDERED: LORazepam 2 MG/ML VIAL IV PUSH ONE (01:15)
[2017-01-02] MEDS: LEVOTHYROXINE SODIUM 75 MCG TAB PO SCH (06:14)
--- NOTE | 2017-01-02 08:38 | HHI.PR ---
Review/Management Daily Summary alert and confused this am trying to get oob, restraints more speech and no overt aphasia plan per yesterday oob with PT 01/02 remains confused and agitated moves 4 limbs well neuro faustin needs [facility] care could start namenda 5 mg bid and outpt neuro f/u Subjective Subjective Comments confused continually Active Medications Current Medications Medications (Trade) Dose Ordered Sig/Kamar Route Start Time Stop Time Status Last Admin (Synthroid) 75 mcg DAILY@0600 PO 12/31/16 06:00 01/02/17 06:14 (Miralax) 17 gm DAILY PO 12/31/16 09:00 01/01/17 10:31 (Timoptic 0.5% Opth Soln) 1 drop DAILY EACH EYE 12/31/16 09:00 12/31/16 08:13 (Xalatan 0.005% Opth Soln) 1 drop HS EACH EYE 12/31/16 21:00 01/01/17 20:45 (NS Flush) 2 ml UNSCH PRN IV FLUSH 12/30/16 13:15 (NS Flush) 2 ml BID IV FLUSH 12/30/16 21:00 01/01/17 20:45 (Tylenol) 650 mg Q4H PRN PO 12/30/16 13:15 (Zofran Inj) 4 mg Q6H PRN IVP 12/30/16 13:15 (Lovenox Inj) 30 mg Q24H SQ 12/30/16 16:00 12/31/16 15:52 (Tylenol) 650 mg Q6H PRN PO 12/30/16 13:15 ([place] 5-325 Mg) 1 tab Q4H PRN PO 12/30/16 13:15 12/30/16 23:29 (Narcan Inj) 0.4 mg UNSCH PRN IV PUSH 12/30/16 13:15 (Mila-Colace) 1 tab BID PO 12/30/16 21:00 01/01/17 10:31 (Ecotrin Ec) 81 mg DAILY PO 12/31/16 09:00 01/01/17 10:31 (Vasotec Inj) 2.5 mg Q6H PRN IV PUSH 12/31/16 18:00 01/02/17 00:10 (Inderal) 60 mg DAILY PO 01/01/17 09:00 01/01/17 10:32 (Norvasc) 5 mg DAILY PO 01/01/17 11:15 Allergies Allergies Coded Allergies Sulfa (Sulfonamide Antibiotics) (Verified Allergy, Severe, Rash, 12/30/16) Exam I&O / VS Vital Signs Date Time Temp Pulse Resp B/P (MAP) Pulse Ox O2 Delivery O2 Flow Rate FiO2 01/02/17 08:28 98.8 88 18 147/62 (90) 94 01/02/17 05:58 98.1 93 18 118/68 (85) 97 01/02/17 00:53 87 165/85 (111) 94 01/02/17 00:38 104 18 192/108 (136) 01/01/17 20:33 84 18 131/86 (101) 01/01/17 16:18 97.5 70 18 182/87 (118) 95 01/01/17 12:14 97.5 85 17 166/77 (106) 96 Objective Micro and Labs Laboratory Tests Test 12/30/16 11:50 12/30/16 12:11 12/31/16 06:12 White Blood Count 13.3 TH/MM3 (4.0-11.0) Red Blood Count 3.87 MIL/MM3 (4.00-5.30) 3.74 MIL/MM3 (4.00-5.30) Neutrophils (%) (Auto) 76.3 % (16.0-70.0) 75.7 % (16.0-70.0) Monocytes (%) (Auto) 10.3 % (0.0-8.0) Neutrophils # (Auto) 10.1 TH/MM3 (1.8-7.7) Monocytes # (Auto) 1.4 TH/MM3 (0-0.9) Prothrombin Time 11.7 SEC (9.8-11.6) Fibrinogen 392 mg/dL (227-377) Bedside Creatinine 1.1 MG/DL (0.6-1.0) Bedside Glucose 107 MG/DL (60-95) Troponin I LESS THAN 0.02 NG/ML Triglycerides Level 153 MG/DL (42-150) HDL Cholesterol 73.9 MG/DL (40.0-60.0) Urine Occult Blood SMALL (NEG) Urine RBC 12 /hpf (0-3) Eosinophils (%) (Auto) 4.1 % (0.0-4.0) Albumin 3.2 GM/DL (3.4-5.0) Estimat Glomerular Filtration Rate 75 ML/MIN (>89) Tre Mahoney MD Jan 02, 2017 08:38
[2017-01-02] MEDS: TIMOLOL MALEATE 0.5% OPHT SOLN 5 ML BTL EACH EYE SCH (09:00)
[2017-01-02] MEDS: amLODIPine BESYLATE 5 MG TAB PO SCH (09:00)
[2017-01-02] MEDS: POLYETHYLENE GLYCOL 17 GM PKG PO SCH (09:00)
[2017-01-02] MEDS: CALCITONIN SALM 200 UNIT/SPRAY 3.7 ML BTLN NASAL SCH (09:00)
[2017-01-02] MEDS: SODIUM CHLORIDE 0.9% FLUSH 10 ML FLUSH IV FLUSH SCH ×2 (09:00→21:10)
[2017-01-02] MEDS: PROPRANOLOL HCL 20 MG TAB PO SCH (09:29)
[2017-01-02] MEDS: DOCUSATE SODIUM 50 MG/SENNA 8.6 MG TAB PO SCH ×2 (09:29→21:10)
[2017-01-02] MEDS: ASPIRIN EC 81 MG TABEC PO SCH (09:29)
[2017-01-02] MEDS ORDERED: QUEtiapine FUMARATE 25 MG TAB PO SCH (10:00)
--- NOTE | 2017-01-02 10:27 | HHI.PR ---
Subjective Remarks The patient was resting comfortably in bed. She knew she was in [place]. She was still in restraints. She had no acute concerns. Discussed with nursing. Objective Vitals Vital Signs Date Time Temp Pulse Resp B/P (MAP) Pulse Ox O2 Delivery O2 Flow Rate FiO2 01/02/17 08:28 98.8 88 18 147/62 (90) 94 01/02/17 05:58 98.1 93 18 118/68 (85) 97 01/02/17 00:53 87 165/85 (111) 94 01/02/17 00:38 104 18 192/108 (136) 01/01/17 20:33 84 18 131/86 (101) 01/01/17 16:18 97.5 70 18 182/87 (118) 95 01/01/17 12:14 97.5 85 17 166/77 (106) 96 I/O 01/01/17 01/01/17 01/01/17 01/02/17 01/02/17 01/02/17 07:00 15:00 23:00 07:00 15:00 23:00 Intake Total 480 ml 480 ml Balance 480 ml 480 ml Intake Oral 480 ml 480 ml # Voids 1 3 3 2 # Bowel Movements 1 2 1 Result Diagram: 12/31/16 0612 12/31/16 0612 Imaging Last Impressions Carotid Artery Ultrasound 12/31/16 0000 Signed Impressions: Service Date/Time: Friday, December 30, 2016 22:23 - CONCLUSION: No evidence of flow-limiting carotid stenosis. Sony Palencia MD Brain MRI 12/31/16 0000 Signed Impressions: Service Date/Time: Saturday, December 31, 2016 11:58 - CONCLUSION: 1. 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 No acute intracranial abnormality. Richard Lo MD Chest X-Ray 12/30/16 0000 Signed Impressions: Service Date/Time: Friday, December 30, 2016 13:27 - CONCLUSION: 1. 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 2. No confluent infiltrate. Benito Mcallister MD Objective Remarks GENERAL: Resting comfortably. SKIN: Focused skin assessment warm/dry. HEAD: Atraumatic. Normocephalic. EYES: Pupils equal and round. No scleral icterus. No injection or drainage. ENT: No nasal bleeding or discharge. Mucous membranes pink and moist. NECK: Trachea midline. No JVD. CARDIOVASCULAR: Regular rate and rhythm. No murmur appreciated. No carotid bruits. RESPIRATORY: No accessory muscle use. Clear to auscultation. Breath sounds equal bilaterally. GASTROINTESTINAL: Abdomen soft, non-tender, nondistended. Hepatic and splenic margins not palpable. MUSCULOSKELETAL: No obvious deformities. No clubbing. No cyanosis. No edema. NEUROLOGICAL: Moves upper and lower extremities. Motor strength appears symmetrical in all extremities. PSYCH: Calm. Medications and IVs Current Medications Medications (Trade) Dose Ordered Sig/Kamar Route Start Time Stop Time Status Last Admin (Synthroid) 75 mcg DAILY@0600 PO 12/31/16 06:00 01/02/17 06:14 (Miralax) 17 gm DAILY PO 12/31/16 09:00 01/01/17 10:31 ([place] 0.5% Opth Soln) 1 drop DAILY EACH EYE 12/31/16 09:00 12/31/16 08:13 ([place]al[place] 0.005% Opth Soln) 1 drop HS EACH EYE 12/31/16 21:00 01/01/17 20:45 (NS Flush) 2 ml UNSCH PRN IV FLUSH 12/30/16 13:15 (NS Flush) 2 ml BID IV FLUSH 12/30/16 21:00 01/01/17 20:45 (Tylenol) 650 mg Q4H PRN PO 12/30/16 13:15 (Zofran Inj) 4 mg Q6H PRN IVP 12/30/16 13:15 (Lovenox Inj) 30 mg Q24H SQ 12/30/16 16:00 12/31/16 15:52 (Tylenol) 650 mg Q6H PRN PO 12/30/16 13:15 ([place] 5-325 Mg) 1 tab Q4H PRN PO 12/30/16 13:15 12/30/16 23:29 (Narcan Inj) 0.4 mg UNSCH PRN IV PUSH 12/30/16 13:15 (Mila-Colace) 1 tab BID PO 12/30/16 21:00 01/02/17 09:29 (Ecotrin Ec) 81 mg DAILY PO 12/31/16 09:00 01/02/17 09:29 (Vasotec Inj) 2.5 mg Q6H PRN IV PUSH 12/31/16 18:00 01/02/17 00:10 (Inderal) 60 mg DAILY PO 01/01/17 09:00 01/02/17 09:29 (Norvasc) 5 mg DAILY PO 01/01/17 11:15 01/02/17 09:00 (Namenda) 5 mg Q12HR PO 01/02/17 10:30 UNV A/P Assessment and Plan Aphasia/ Dementia/ Agitation The patient was brought in from a senior care facility with an inability to speak. Neurology was contacted and TPA was not administered. 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 EKG with sinus rhythm. Symptoms seem to have resolved, however, the patient has dementia and is currently agitated. Neurology consult appreciated. MRI of brain with bilateral cortical atrophy, chronic right mastoiditis. Carotid ultrasound unremarkable. LDL is 61. Status post bedrest and permissive hypertension. a1c 5.6%. Echo with normal EF. - Aspirin 325 mg by mouth 1 and 81 mg daily after. - Neurology following. - Monitor on telemetry. - d/c restraints and focus on frequent orientation. Seroquel as needed. QTc is not prolonged. - PT/ OT/ ST. - Namenda 5 mg BID started 01/02. HTN Blood pressure has been elevated. - Resume home meds. Add amlodipine 5 mg daily. Improved. - Vasotec as needed. Leukocytosis Possibly a stress reaction. UA unremarkable. CXR with chronic interstitial changes. - follow CBC. Resolved. Renal insufficiency Likely pre-renal. - IVFs and monitor. Resolved. PPx: Lovenox Discharge Planning D/c to SNF in AM if off restraints 24 hours Jean Alicia DO Jan 02, 2017 10:27
[2017-01-02] MEDS: MEMANTINE HCL 5 MG TAB PO SCH ×2 (13:05→21:10)
[2017-01-02] MEDS: QUEtiapine FUMARATE 25 MG TAB PO SCH ×2 (13:05→21:10)
[2017-01-02] MEDS: ENOXAPARIN SODIUM 30 MG/0.3 ML SYRINGE SQ SCH (16:25)
--- NOTE | 2017-01-02 16:57 | MG ---
cc: ERI RODRIGUEZ Lab No: [id number] Date: 12/31/16 Age: 89 Sex: F Race: TECHNIQUE This is a 17 channel EEG. DESCRIPTION The background rhythm shows a symmetrical alpha rhythm. The frequency is 8 Hz, amplitude is 10-20 microvolts. There is some muscle artifact as well as eye movement artifact, during sleep and drowsiness there is slowing in the theta frequency with sleep spindles identified. There are no lateralizing features seen. There are no epileptiform discharges. Photic results in a normal driving response. Hyperventilation was not performed. INTERPRETATION Normal awake and asleep EEG. MD GENEVA Gonzales/ANA LUISA /3:10 PM /4:57 PM
[2017-01-02] MEDS: LATANOPROST 0.005% OPHT SOLN 2.5 ML BTL EACH EYE SCH (21:09)
[2017-01-02] MEDS: ACETAMINOPHEN/HYDROcodone 325 MG/5 MG TAB PO PRN (22:16)
[2017-01-03 01:14] VITALS: BP 90/50; PULSE 67; RESP 16; TEMP 97.7; O2SAT 93
[2017-01-03 04:00] VITALS: BP 132/63; PULSE 69; RESP 16; TEMP 98.4; O2SAT 95
[2017-01-03] MEDS: LEVOTHYROXINE SODIUM 75 MCG TAB PO SCH (06:15)
[2017-01-03] MEDS: PROPRANOLOL HCL 20 MG TAB PO SCH (09:00)
[2017-01-03] MEDS: DOCUSATE SODIUM 50 MG/SENNA 8.6 MG TAB PO SCH (09:00)
[2017-01-03] MEDS: MEMANTINE HCL 5 MG TAB PO SCH (09:00)
[2017-01-03] MEDS: TIMOLOL MALEATE 0.5% OPHT SOLN 5 ML BTL EACH EYE SCH (09:00)
[2017-01-03] MEDS: SODIUM CHLORIDE 0.9% FLUSH 10 ML FLUSH IV FLUSH SCH (09:00)
[2017-01-03] MEDS: POLYETHYLENE GLYCOL 17 GM PKG PO SCH (09:00)
[2017-01-03] MEDS: amLODIPine BESYLATE 5 MG TAB PO SCH (09:00)
[2017-01-03] MEDS: ASPIRIN EC 81 MG TABEC PO SCH (09:00)
[2017-01-03] MEDS: CALCITONIN SALM 200 UNIT/SPRAY 3.7 ML BTLN NASAL SCH (09:00)
[2017-01-03] MEDS: QUEtiapine FUMARATE 25 MG TAB PO SCH (09:00)
[2017-01-03 09:35] VITALS: BP 146/69; PULSE 80; RESP 16; TEMP 98.2; O2SAT 95
[2017-01-03] MEDS ORDERED: ECASA81 PO (10:24)
[2017-01-03] MEDS ORDERED: NAME5TAB2 PO (10:24)
[2017-01-03] MEDS ORDERED: AMLO2.5T PO (10:24)
[2017-01-03] MEDS ORDERED: TRAM50TA PO (10:24)
--- NOTE | 2017-01-03 10:25 | HHI.DCPOC ---
Discharge Care Plan Diagnosis: (1) Dysarthria (2) Dementia (3) HTN (hypertension) Goals to Promote Your Health * To prevent worsening of your condition and complications * To maintain your health at the optimal level Directions to Meet Your Goals Take your medications as prescribed Follow your dietary instruction Follow activity as directed Keep your appointments as scheduled Take your immunizations and boosters as scheduled If your symptoms worsen call your PCP, if no PCP go to Urgent Care Center or Emergency Room Smoking is Dangerous to Your Health. Avoid second hand smoke Call the 24-hour hour crisis hotline for domestic abuse at Jean Alicia DO Jan 03, 2017 10:25
--- NOTE | 2017-01-03 10:34 | HHI.DS ---
Discharge Summary Admission Date Dec 30, 2016 at 13:18 Discharge Date: Jan 03, 2017 Admitting Diagnosis acute stroke (1) Dysarthria ICD Code: R47.1 - Dysarthria and anarthria Status: Acute (2) Dementia ICD Code: F03.90 - Unspecified dementia without behavioral disturbance Diagnosis: Principal (3) HTN (hypertension) ICD Code: I10 - Essential (primary) hypertension Procedures None Brief History - From Admission The patient is an 89-year-old female who came to the emergency room with a history of difficulty speaking this morning at the rehabilitation facility. The patient has been in the rehabilitation facility for recent hip replacement surgery. She was last seen normal at 8:30 in the morning by the staff. Sometime soon after that the patient started having difficulty speaking and she used her call abarca to get the staff's attention. EMS was called. They noticed expressive aphasia on the patient without any unilateral deficit. Vital signs have been stable. Patient is not on any blood thinners as per the paramedics. She was awake and anxious in the emergency department. She was confused and did not know why she was here. She said that her left leg was broken and it was casted and that is why she is here. She indicated that she would like to leave the hospital soon. She said that her would be visiting her from [facility]. She did not indicate any pain at this time. She said she did not have much of an appetite. Discussed with nursing. CBC/BMP: 12/31/1661112/31/16611 Imaging Last Impressions Carotid Artery Ultrasound 12/31/16 0000 Signed Impressions: Service Date/Time: Friday, December 30, 2016 22:23 - CONCLUSION: No evidence of flow-limiting carotid stenosis. Sony Palencia MD Brain MRI 12/31/16 0000 Signed Impressions: Service Date/Time: Saturday, December 31, 2016 11:58 - CONCLUSION: 1. 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 No acute intracranial abnormality. Richard Lo MD Chest X-Ray 12/30/16 0000 Signed Impressions: Service Date/Time: Friday, December 30, 2016 13:27 - CONCLUSION: 1. 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 2. No confluent infiltrate. Benito Mcallister MD PE at Discharge GENERAL: Resting comfortably. SKIN: Focused skin assessment warm/dry. HEAD: Atraumatic. Normocephalic. EYES: Pupils equal and round. No scleral icterus. No injection or drainage. ENT: No nasal bleeding or discharge. Mucous membranes pink and moist. NECK: Trachea midline. No JVD. CARDIOVASCULAR: Regular rate and rhythm. No murmur appreciated. No carotid bruits. RESPIRATORY: No accessory muscle use. Clear to auscultation. Breath sounds equal bilaterally. GASTROINTESTINAL: Abdomen soft, non-tender, nondistended. Hepatic and splenic margins not palpable. MUSCULOSKELETAL: No obvious deformities. No clubbing. No cyanosis. No edema. NEUROLOGICAL: Awake and alert. Moves upper and lower extremities. PSYCH: Calm. Pt update on day of discharge The patient was resting comfortably in bed. She was confused. She had no acute complaints. Discussed with case management. Hospital Course Aphasia/ Dementia/ Agitation The patient was brought in from a senior care facility with an inability to speak. Neurology was contacted and TPA was not administered. 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 EKG with sinus rhythm. Symptoms improved but the pt did become agitated from time to time. Neurology was consulted. MRI of brain with bilateral cortical atrophy, chronic right mastoiditis. Carotid ultrasound unremarkable. LDL was 61. Status post bedrest and permissive hypertension. A1c was 5.6%. Echo with normal EF. She received aspirin 325 mg by mouth 1 and 81 mg daily after. She was monitored on telemetry. We d/c restraints and focused on frequent orientation. She did receive PO Seroquel for intermittent agitation. She worked with PT/ OT/ ST. Namenda 5 mg BID was started 01/02. She will follow up with neurology upon discharge. HTN Blood pressure fluctuated while in the hospital. She was continued on her home meds. Amlodipine 2.5 mg daily was added. She will follow up with her PCP. Leukocytosis UA unremarkable. CXR with chronic interstitial changes. Resolved. Renal insufficiency Resolved with IVFs. Her diet was advanced. Pt Condition on Discharge: Stable Discharge Disposition: Discharge to SNF Discharge Time: > 30 minutes Discharge Instructions DIET: Follow Instructions for: Heart Healthy Diet Speech Therapy-Diet Recommends: Regular Activities you can perform: Weight Bearing as Sean Follow up Referrals: Neurology - 1 Week with Tre Mahoney MD PCP Follow-up New Medications: Amlodipine (Amlodipine) 2.5 Mg Tab 2.5 MG PO DAILY for Blood Pressure Management, #30 TAB [address] (Aspirin DR) 81 Mg Tabdr 81 MG PO DAILY for Stroke Prevention, #30 TAB Memantine (Namenda) 5 Mg Tab 5 MG PO Q12HR for Dementia, #60 TAB Continued Medications: Acetaminophen (Tylenol) 325 Mg Tab 650 MG PO Q6H PRN for PAIN 1 TO 10 AND/OR AGITATION, TAB 0 Refills Calcitonin ([place]) Nasal [place] (Calcitonin ([place]) Nasal [place]) 200 Units/Act Soln 1 SPRAY NASAL DAILY for Osteoporosis, #3.7 ML 0 Refills Alternate nostrils daily. Levothyroxine (Levothyroxine) 75 Mcg Tab 75 MCG PO DAILY for Thyroid, #30 TAB 0 Refills Meloxicam (Meloxicam) 7.5 Mg Tab 7.5 MG PO DAILY for Arthritis Pain, TAB 0 Refills Methotrexate (Methotrexate) 2.5 Mg Tab 2.5 MG PO Q7D, TAB 0 Refills Polyethylene Glycol 3350 Powder (Miralax Powder) 17 Gm Powd 17 GM PO DAILY for Constipation, #1 CAN 0 Refills Mix and dissolve one measuring cap-ful (17 grams) in water or juice. Propranolol (Propranolol) 60 Mg Tab 60 MG PO DAILY, #60 TAB 0 Refills Timolol Opth Drops (Timolol Opth Drops) 0.5 % Soln 1 DROP EACH EYE DAILYAC for Glaucoma, #1 BOTTLE 0 Refills Tramadol (Tramadol) 50 Mg Tab 50 MG PO Q6H PRN for PAIN, #12 TAB 0 Refills (This prescription has been renewed ) Travoprost Opth Drops (Travatan Z Opth Drops) 0.004 % Soln 1 DROP EACH EYE HS for Glaucoma, #1 BOTTLE 0 Refills Discontinued Medications: Hydrocodone-Acetaminophen ([place]) 5-325 mg Tab 1 TAB PO Q4H PRN for PAIN, #50 TAB 0 Refills Jean Alicia DO Jan 03, 2017 10:34
[2017-01-03 13:50] VITALS: BP 145/70; PULSE 86; RESP 16; TEMP 97.8; O2SAT 94
== END 2017-01-03 16:15 | DRG 93 ==
LOC: NEPC 11:37 → NEDA 13:18 → OBSVTOIN 13:18 → N05A 16:11
PROVIDERS: ADMIT Hospitalist; ATTEND Hospitalist
DX: R47.1 Dysarthria and anarthria (principal); J84.112 Idiopathic pulmonary fibrosis; F03.90 Unspecified dementia, unspecified severity, without behavioral disturbance, psychotic disturbance, mood disturbance, and anxiety; I48.91 Unspecified atrial fibrillation; I10 Essential (primary) hypertension; R47.01 Aphasia; E03.9 Hypothyroidism, unspecified; Z78.1 Physical restraint status; G89.29 Other chronic pain; M54.9 Dorsalgia, unspecified; M19.90 Unspecified osteoarthritis, unspecified site; Z87.891 Personal history of nicotine dependence; N28.9 Disorder of kidney and ureter, unspecified; Z79.82 Long term (current) use of aspirin; H70.11 Chronic mastoiditis, right ear; H40.9 Unspecified glaucoma; Z96.649 Presence of unspecified artificial hip joint
CPT/HCPCS: 70450; 70551; 71010; 80053; 80061; 80307; 81001; 82435; 82550; 82565; 82947; 82948; 83036; 83735; 84100; 84132; 84295; 84484; 84520; 84702; 85025; 85384; 85610; 85730; 86850; 86900; 86901; 93005; 93306; 93880; 95819; 96360; J1650; J2060; J7030; J7050; P9612